=== PATIENT | male | born 1960 | race Caucasian/White ===

== ENCOUNTER 2022-04-27 15:31 | Inpatient (IN) ==
[2022-04-27] MEDS ORDERED: ONDANSETRON 4 MG/2 ML VIAL IV ONE (15:46)
[2022-04-27] MEDS ORDERED: morphine 4 MG/ML VIAL IV ONE (15:46)
--- NOTE | 2022-04-27 15:50 | Emergency Department Note ---
HPI General Chief complaint: Abdominal Pain Stated complaint: stomach ulcer Time Seen by Provider: 04/27/22 15:41 Source: patient Mode of arrival: ambulatory Limitations: no limitations History of Present Illness HPI Narrative: Narrative: 61-year-old male presents the emergency department for abdominal pain. He ac tually saw his primary care doctor today as he is having his belly pain that started last night around 6:30 PM. States that he saw his normal doctor and she ordered a CAT scan. Said today he had the CAT scan done here he had a barium swallow and a CAT scan done. He has not ate or drank anything since 9 AM. His CAT scan was actually read by Dr. Raphael Ramirez who called into the emergency department because they noticed an abnormal finding. They said showed moderate free air in the upper mesenteric cavity most likely secondary to a perforated gastric ulcer. Patient says the pain is actually on the lower abdomen. Says actually more in the groin. Says it feels like someone is squeezing his testicles. Says not really having testicle pain to just says hurts in his entire abdomen. Does have history of diverticulosis as well as diverticulitis said this does not feel like that. No changes in bowel movements. Denying any other symptoms otherwise. Related Data Previous Rx's Medication Instructions Recorded colchicine 0.6 mg tablet 0.6 mg PO BID #30 tabs 05/21/20 sildenafil 100 mg tablet (Viagra) 100 mg PO QDAY PRN sexual activity 04/21/21 #20 tabs Allergies Allergy/AdvReac Type Severity Reaction Status Date / Time No Known Drug Allergies Allergy Verified 04/27/22 15:39 enviromental Allergy Unknown Unknown Uncoded 04/27/22 08:35 Review of Systems ROS ROS Narrative: Narrative: All systems ED: reviewed and negative except as stated. PFSH Narrative Patient History Narrative: Narrative: Medical/Surgical/Family History All Active Problems (Updated 04/27/22 @ 20:11 by Brannon Marin DO) Perforated gastric ulcer (Acute) Acute diverticulitis of intestine (Acute) Erectile dysfunction (Acute) Screening for colon cancer (Acute) Genital herpes in men (Chronic) Hepatitis (Chronic) Gout (Chronic) Arthritis (Chronic) Upper respiratory tract infection (Acute) Medical History Arthritis Erectile dysfunction Genital herpes in men Gout last flare 05/2017 Hepatitis Screening for colon cancer Surgical History History of colonoscopy 2010, repeat in 10 years Family History Grandmother Diabetes Maternal/Paternal Grandfather Diabetes Maternal/Paternal Social History Smoking Status: Never smoker Alcohol Intake Frequency: does not drink Substance Use: does not use and former substance user Exam Narrative Narrative: Narrative: Vital signs noted General: Awake. Alert. No distress. Skin: Warm. Dry. No rash. HEENT: NCAT. PERRL. EOMI. No conjunctivitis. No nystagmus. No pharyngitis. Membranes moist. Neck: No PTP. Good ROM. No meningeal signs. No stridor. No thyromegaly. No JVD. Cardiovascular: RRR. No murmur. No rubs. No gallops. Respiratory: No respiratory distress. Breath sounds equal. Lungs clear. Gastrointestinal: Abdomen soft. Mild distention with generalized abdominal tenderness not really localized to a certain area. Normal bowel sounds. No palpable organomegaly or masses. Back: No deformity. No CVAT. Musculoskeletal: No tenderness. No swelling. No erythema. No edema. Good peripheral pulses x 4 Lymphatic: No palpable adenopathy. Neurological: No focal neurological deficits observed. General Limitations: no limitations Course Vital Signs Vital signs: Vital Signs Oxygen Delivery Method 04/27/22 15:37 Temperature 99.6 F H 04/27/22 19:56 Pulse Rate 97 H 04/27/22 19:56 Respiratory Rate 20 04/27/22 19:56 Blood Pressure 141/80 04/27/22 19:56 Pulse Oximetry (%) 95 04/27/22 19:56 Oxygen Delivery Method 04/27/22 19:56 MDM MDM Narrative Medical decision making narrative: Narrative: Patient actually looks well on exam but his abdomen is obviously tender. Based on the CAT scan already being done in the outpatient setting I do know the diagnosis. Diagnosis most likely is a moderate free air in the upper abdomen most likely secondary to a gastric ulcer. He does have would be considered a contaminated abdomen and deftly needs an emergent surgical consult. Due to this I called and spoke with Dr. Borrego the on-call general surgeon who recommended admission under his service and basic labs including CBC CMP and said that he will order the patient antibiotics. No further treatment needed for this patient I did order CBC and CMP. Patient was given IV morphine for pain control, IV Zofran for nausea and vomiting as well as IV fluids for rehydration. Patient is doing well at this time. I did personally review the radiological studies that were done in the outpatient setting read by Dr. Raphael Ramirez. The impression read as moderate free air in the upper mesenteric cavity adjacent to the lesser curvature of the distal gastric body. Most likely the patient has a perforated gastric ulcer. He also showed mild diverticulitis mid sigmoid colon, 5 cm lipoma in the right inguinal region, partial ankylosis across the SI joints. Patient was given IV Dilaudid as well for pain. Patient will be admitted to Dr. Borrego. I did speak with him and he is okay with this plan. Lab Data Result diagrams: 04/27/22 15:46 04/27/22 15:46 Labs: Lab Results 04/27/22 04/27/22 04/27/22 Range/Units 15:46 15:46 17:19 WBC 13.1 H (4.5-11.0) K/mcL RBC 5.35 (4.63-6.08) M/mcL Hgb 16.2 (13.7-17.5) g/dL Hct 47.9 (40.1-51.0) % MCV 89.5 (80.0-100.0) fL MCH 30.3 (26.0-34.0) pg MCHC 33.8 (31.0-36.0) g/dL RDW 12.7 (11.5-14.5) % Plt Count 236 (140-440) K/mcL MPV 10.8 (8.8-12.5) fL Immature Gran % (Auto) 0.4 (0.0-0.5) % Neut % (Auto) 86.8 H (38.0-78.0) % Lymph % (Auto) 6.4 L (15.5-49.0) % [place] % (Auto) 6.0 (1.0-12.0) % Eos % (Auto) 0.1 (0.0-7.0) % Baso % (Auto) 0.3 (0.0-2.0) % Lymph # (Auto) 0.83 L (1.50-4.80) K/mcL [place] # (Auto) 0.79 (0.10-0.90) K/mcL Eos # (Auto) 0.01 (0.00-0.70) K/mcL Baso # (Auto) 0.04 (0.00-0.30) K/mcL Immature Gran # 0.05 (0.00-0.05) K/mcl Absolute Neutrophils 11.34 H (1.80-8.00) K/mcL VBG Lactic Acid (0.5-2.0) mmol/L Sodium 131 L (133-145) mmol/L Potassium 4.2 (3.3-5.1) mmol/L Chloride 96 (96-108) mmol/L Carbon Dioxide 26 (22-30) mmol/L Anion Gap 9.0 (8.0-16.0) BUN 9 (8-23) mg/dL Creatinine 0.9 (0.7-1.2) mg/dL GFR Calculation 91 Glucose 112 H (70-105) mg/dL Calcium 9.2 (8.6-10.4) mg/dL Total Bilirubin 0.9 (0.1-1.0) mg/dL AST 18 (<40) U/L ALT 20 (<40) U/L Alkaline Phosphatase 64 (39-117) U/L Total Protein 7.5 (5.9-8.4) gm/dL Albumin 4.4 (3.2-5.2) gm/dL Globulin 3.1 (2.2-3.7) gm/dL Albumin/Globulin Ratio 1.4 (1.0-2.3) Lipase 24 (7-60) U/L Urine Color Lt. yellow Urine Appearance Clear (Clear) Urine pH 6.0 (5.0-9.0) Ur Specific [place] <= 1.005 (1.000-1.035) Urine Protein Negative (Negative) mg/dL Urine Glucose (UA) Negative (Negative) mg/dL Urine Ketones Negative (Negative) mg/dL Urine Occult Blood Negative (Negative) carin/mcL Urine Nitrate Negative (Negative) Urine Bilirubin Negative (Negative) mg/dL Urine Urobilinogen 0.2 A mg/dL Ur Leukocyte Esterase Negative (Negative) /uL Urine RBC 0 (0-3) /hpf Urine WBC < 1 (0-4) /hpf Ur Squamous Epith Cells 0 (0-4) /hpf Urine Bacteria None (0) /hpf 04/27/22 Range/Units 17:44 WBC (4.5-11.0) K/mcL RBC (4.63-6.08) M/mcL Hgb (13.7-17.5) g/dL Hct (40.1-51.0) % MCV (80.0-100.0) fL MCH (26.0-34.0) pg MCHC (31.0-36.0) g/dL RDW (11.5-14.5) % Plt Count (140-440) K/mcL MPV (8.8-12.5) fL Immature Gran % (Auto) (0.0-0.5) % Neut % (Auto) (38.0-78.0) % Lymph % (Auto) (15.5-49.0) % [place] % (Auto) (1.0-12.0) % Eos % (Auto) (0.0-7.0) % Baso % (Auto) (0.0-2.0) % Lymph # (Auto) (1.50-4.80) K/mcL [place] # (Auto) (0.10-0.90) K/mcL Eos # (Auto) (0.00-0.70) K/mcL Baso # (Auto) (0.00-0.30) K/mcL Immature Gran # (0.00-0.05) K/mcl Absolute Neutrophils (1.80-8.00) K/mcL VBG Lactic Acid 0.7 (0.5-2.0) mmol/L Sodium (133-145) mmol/L Potassium (3.3-5.1) mmol/L Chloride (96-108) mmol/L Carbon Dioxide (22-30) mmol/L Anion Gap (8.0-16.0) BUN (8-23) mg/dL Creatinine (0.7-1.2) mg/dL GFR Calculation Glucose (70-105) mg/dL Calcium (8.6-10.4) mg/dL Total Bilirubin (0.1-1.0) mg/dL AST (<40) U/L ALT (<40) U/L Alkaline Phosphatase (39-117) U/L Total Protein (5.9-8.4) gm/dL Albumin (3.2-5.2) gm/dL Globulin (2.2-3.7) gm/dL Albumin/Globulin Ratio (1.0-2.3) Lipase (7-60) U/L Urine Color Urine Appearance (Clear) Urine pH (5.0-9.0) Ur Specific [place] (1.000-1.035) Urine Protein (Negative) mg/dL Urine Glucose (UA) (Negative) mg/dL Urine Ketones (Negative) mg/dL Urine Occult Blood (Negative) carin/mcL Urine Nitrate (Negative) Urine Bilirubin (Negative) mg/dL Urine Urobilinogen mg/dL Ur Leukocyte Esterase (Negative) /uL Urine RBC (0-3) /hpf Urine WBC (0-4) /hpf Ur Squamous Epith Cells (0-4) /hpf Urine Bacteria (0) /hpf Discharge Plan Patient/Caregiver Discharge Instructions Pt seen by TACTICAL DEBRIEFER OFFICER/PA only: No Clinical Impression: Perforated gastric ulcer Patient Disposition: Xfer As Inpt ([facility]) Condition: Fair Discharge Date/Time: 04/27/22 19:05
[2022-04-27] MEDS: 0.9 % SODIUM CHLORIDE 1,000 ML IV SCH (16:06)
[2022-04-27 16:30] LABS: Basophils # (Auto) 0.04 K/mcL (0.00-0.30); Basophils % (Auto) 0.3 % (0.0-2.0); Eosinophils # (Auto) 0.01 K/mcL (0.00-0.70); Eosinophils % (Auto) 0.1 % (0.0-7.0); Hematocrit 47.9 % (40.1-51.0); Hemoglobin 16.2 g/dL (13.7-17.5); Lymphocytes # (Auto) 0.83 K/mcL (1.50-4.80); Lymphocytes % (Auto) 6.4 % (15.5-49.0); Mean Cell Volume 89.5 fL (80.0-100.0); Mean Corpuscular HGB Conc 33.8 g/dL (31.0-36.0); Mean Platelet Volume 10.8 fL (8.8-12.5); Monocytes # (Auto) 0.79 K/mcL (0.10-0.90); Neutrophils % (Auto) 86.8 % (38.0-78.0); Platelet Count 236 K/mcL (140-440); RBC 5.35 M/mcL (4.63-6.08); Red Cell Distribution Width 12.7 % (11.5-14.5); WBC 13.1 K/mcL (4.5-11.0)
[2022-04-27] MEDS ORDERED: PROMETHAZINE 25 MG/ML VIAL IV PRN (17:05)
--- NOTE | 2022-04-27 17:05 | General Surg History&Physical ---
HPI History of Present Illness Patient information: Note initiated : 04/27/22 at 4:58 pm Service Date, if different from initiated Date: [] Patient: Elkin Boucher a 61 y/o M admitted on for stomach ulcer. Chief Complaint: [] Chief complaint: Acute abdominal pain History of present illness: Mr. Boucher is a 61 year old M with 24-hour history of lower abdominal pain with nausea. He is also had some dysuria and hypogastric pain with radiation to his scrotum. He was seen by his primary provider earlier today and was noted to have some lower abdominal tenderness. She ordered CT of the abdomen and this showed free air which showed a combination of diffuse subphrenic air but also some air in the lower abdomen. He was noted to have sigmoid diverticulitis. On close questioning all of his symptoms are in the lower abdomen. Patient is felt to have acute diverticulitis and is admitted for antibiotic treatment and observation. He will have follow-up CT in 72 to 96 hours based on his response. If he responds and remains afebrile with resolution of symptoms he will be discharged home and treated with 3 weeks of antibiotics. Patient has had lower abdominal pain in the past but he has never had CT evidence of diverticulitis. He did have a colonoscopy in 2010 which showed diffuse diverticulosis. Though the diagnosis possible gastric ulcer perforation was given the patient has not had any upper abdominal symptoms and there are no findings of upper abdominal tenderness at this time. Review of Systems All systems: reviewed and no additional remarkable complaints except as stated PFSH PFSH All Active Problems (Updated 04/27/22 @ 17:03 by Roxanne Borrego MD) Acute diverticulitis of intestine (Acute) Erectile dysfunction (Acute) Screening for colon cancer (Acute) Genital herpes in men (Chronic) Hepatitis (Chronic) Gout (Chronic) Arthritis (Chronic) Upper respiratory tract infection (Acute) Medical History Arthritis Erectile dysfunction Genital herpes in men Gout last flare 05/2017 Hepatitis Screening for colon cancer Surgical History History of colonoscopy 2010, repeat in 10 years Family History Grandmother Diabetes Maternal/Paternal Grandfather Diabetes Maternal/Paternal Social History household members: spouse marital status: smoking status: Never smoker alcohol intake frequency: does not drink substance use type: does not use and former substance user MEDS/ALLERGIES Home Medications and Allergies Home Medications Medication Instructions Recorded Confirmed Type colchicine 0.6 mg tablet 0.6 mg PO BID #30 tabs 05/21/20 04/27/22 Rx sildenafil 100 mg tablet (Viagra) 100 mg PO QDAY PRN sexual activity 04/21/21 04/27/22 Rx #20 tabs Allergies Allergy/AdvReac Type Severity Reaction Status Date / Time No Known Drug Allergies Allergy Verified 04/27/22 15:39 enviromental Allergy Unknown Unknown Uncoded 04/27/22 08:35 Physical Examination Vital Signs Vital signs: Pulse BP Pulse Ox O2 Del Method 82 152/89 96 04/27/22 16:01 04/27/22 16:01 04/27/22 16:01 04/27/22 15:37 General physical appearance General physical exam: well developed, no distress and moderate pain Eyes Eye exam: PERRL and normal ocular movement ENT ENT exam: normal mucosa and no congestion Head Head exam IM: Present atraumatic, normal inspection and normocephalic Neck Neck exam: no masses, no bruits, trachea midline, no lymphadenopathy and no venous distension Cardiovascular Cardiovascular exam IM: Present normal rate and rhythm, RRR, +S1 and +S2; Absent gallop or JVD Respiratory Respiratory exam: normal expansion, normal respiratory effort and clear to auscultation Abdomen Abdomen: Present tender (Left lower quadrant and suprapubic area) and guarding (Hypogastric) Integumentary Integumentary: Present no rash, no growths and no abnormal pigmentation Neurologic Neurologic: Present normal coordination and normal sensation Musculoskeletal Musculoskeletal: Present normal gait and normal posture Psychiatric Psychiatric: Present oriented to time, oriented to person, oriented to place, speech is normal and memory intact Results Labs Result diagrams: 04/27/22 15:46 04/27/22 15:46 Labs: Abnormal lab results 04/27/22 Range/Units 15:46 WBC 13.1 H (4.5-11.0) K/mcL Neut % (Auto) 86.8 H (38.0-78.0) % Lymph % (Auto) 6.4 L (15.5-49.0) % Lymph # (Auto) 0.83 L (1.50-4.80) K/mcL Absolute Neutrophils 11.34 H (1.80-8.00) K/mcL All other labs normal. A/P Assessment and plan (1) Acute diverticulitis of intestine: Status: Acute Plan N.p.o. except for clear liquids Ciprofloxacin 500 mg IV every 12 hours Metronidazole 500 mg IV every 6 hours Follow-up CT in 72 to 96 hours. Serial chemistries and CBC Analgesics and antiemetics as needed Sepsis Sepsis Identified: No Time Spent With Patient Time: Total time spent is greater than 50% in coordination of care (as documented) at patient's floor/unit and/or counseling patient:
[2022-04-27 17:12] LABS: ALT/SGPT 20 U/L (<40); AST/SGOT 18 U/L (<40); Albumin 4.4 gm/dL (3.2-5.2); Albumin/Globulin Ratio 1.4 (1.0-2.3); Alkaline Phosphatase 64 U/L (39-117); Bilirubin,Total 0.9 mg/dL (0.1-1.0); Blood Urea Nitrogen 9 mg/dL (8-23); Calcium 9.2 mg/dL (8.6-10.4); Carbon Dioxide 26 mmol/L (22-30); Chloride 96 mmol/L (96-108); Globulin 3.1 gm/dL (2.2-3.7); Glomerular Filtration Rate 91; Glucose 112 mg/dL (70-105)
[2022-04-27] MEDS ORDERED: HYDROmorphone 1 MG/ML SYRINGE IV PRN (17:19)
[2022-04-27] MEDS: HYDROmorphone 1 MG/ML SYRINGE IV PRN ×2 (17:29→22:19)
--- NOTE | 2022-04-27 17:45 | XRay Report ---
CLINICAL INFORMATION: Preop COMPARISON: None. TECHNIQUE: Portable FINDINGS: The heart size, mediastinum and pulmonary vessels are unremarkable. The lungs are clear. There are no effusions. The bones and soft tissues are within normal limits. Moderate free air noted under the right diaphragm IMPRESSION: Cardiopulmonary disease. Subdiaphragmatic free air compatible with a ruptured gastric ulcer Interpreted and Authenticated by: Jameson Frias 04/27/22
[2022-04-27] MEDS: CIPROFLOXACIN 400 MG/200 ML BAG IV SCH (18:12)
[2022-04-27 19:32] LABS: Appearance,Urine CLEAR (Clear); Bilirubin,Urine NEGATIVE (Negative); Color,Urine LT. YELLOW; Glucose,Urine (UA) NEGATIVE (Negative); Ketones,Urine NEGATIVE (Negative); Leukocyte Esterase,Urine NEGATIVE /uL (Negative); Nitrate,Urine NEGATIVE (Negative); Protein,Urine NEGATIVE (Negative); Specific Gravity,Urine <= 1.005 (1.000-1.035); Urine Blood NEGATIVE ery/mcL (Negative); Urine RBC 0 /hpf (0-3); Urine Squamous Epithelial Cell 0 /hpf (0-4); Urine WBC < 1 /hpf (0-4); Urobilinogen,Urine 0.2 mg/dL
[2022-04-27] MEDS: metroNIDAZOLE 500 MG/100 ML BAG IV SCH ×2 (19:47→23:56)
[2022-04-27] MEDS: 0.9 % SODIUM CHLORIDE 10 ML SYRINGE IV SCH (20:22)
[2022-04-28] MEDS: 0.9 % SODIUM CHLORIDE 1,000 ML IV SCH ×3 (02:10→19:17)
[2022-04-28] MEDS: 0.9 % SODIUM CHLORIDE 10 ML SYRINGE IV SCH ×3 (04:42→20:21)
[2022-04-28] MEDS: metroNIDAZOLE 500 MG/100 ML BAG IV SCH ×3 (05:06→17:34)
[2022-04-28] MEDS: HYDROmorphone 1 MG/ML SYRINGE IV PRN ×6 (06:42→20:13)
[2022-04-28 06:53] LABS: Basophils # (Auto) 0.04 K/mcL (0.00-0.30); Basophils % (Auto) 0.3 % (0.0-2.0); Eosinophils # (Auto) 0 K/mcL (0.00-0.70); Eosinophils % (Auto) 0 % (0.0-7.0); Hematocrit 41.3 % (40.1-51.0); Hemoglobin 13.7 g/dL (13.7-17.5); Lymphocytes # (Auto) 1.04 K/mcL (1.50-4.80); Lymphocytes % (Auto) 8.4 % (15.5-49.0); Mean Corpuscular HGB Conc 33.2 g/dL (31.0-36.0); Mean Platelet Volume 11.2 fL (8.8-12.5); Monocytes # (Auto) 0.81 K/mcL (0.10-0.90); Monocytes % (Auto) 6.6 % (1.0-12.0); Neutrophils % (Auto) 84.4 % (38.0-78.0); Platelet Count 171 K/mcL (140-440); RBC 4.44 M/mcL (4.63-6.08); Red Cell Distribution Width 12.7 % (11.5-14.5); WBC 12.3 K/mcL (4.5-11.0)
[2022-04-28 07:24] LABS: ALT/SGPT 13 U/L (<40); AST/SGOT 14 U/L (<40); Albumin 3.6 gm/dL (3.2-5.2); Albumin/Globulin Ratio 1.5 (1.0-2.3); Alkaline Phosphatase 53 U/L (39-117); Bilirubin,Direct 0.2 mg/dL (<0.3); Blood Urea Nitrogen 8 mg/dL (8-23); Calcium 8.4 mg/dL (8.6-10.4); Carbon Dioxide 23 mmol/L (22-30); Chloride 99 mmol/L (96-108); Globulin 2.4 gm/dL (2.2-3.7); Glomerular Filtration Rate 80; Glucose 114 mg/dL (70-105); Lactate Dehydrogenase 173 U/L (135-225); Phosphorous 2.7 mg/dL (2.5-4.5); Triglycerides 42 mg/dL (<150); Uric Acid 5.2 mg/dL (2.5-8.0)
--- NOTE | 2022-04-28 07:30 | EKG ---
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
[2022-04-28] MEDS: ONDANSETRON 4 MG/2 ML VIAL IV PRN ×2 (08:22→16:15)
[2022-04-28] MEDS: CIPROFLOXACIN 400 MG/200 ML BAG IV SCH ×2 (09:56→20:16)
[2022-04-28] MEDS ORDERED: BUTALB/ACETAMINOPHEN/CAFFEINE 1 TABLET PO PRN (17:22)
--- NOTE | 2022-04-28 17:26 | General Surgery Progress Note ---
SUBJECTIVE Subjective Patient information: Note initiated : 04/28/22 at 5:23 pm Service Date, if different from initiated Date: [] Patient: Elkin Boucher 61 y/o M admitted on 04/27/22 for stomach ulcer. Chief Complaint: [] Principal diagnosis: Acute diverticulitis Interval history: Patient has had some nausea with vomiting today. He has been afebrile. He has not had bowel movement or flatus. White blood count 12.3, hemoglobin 13.7, hematocrit 41.3 Constitutional Vitals: Vital Signs Temp Pulse Resp BP Pulse Ox O2 Del Method 98.4 F 73 20 146/76 95 04/28/22 16:00 04/28/22 03:32 04/28/22 16:00 04/28/22 16:00 04/28/22 16:00 04/28/22 16:00 Period Temp Pulse Resp BP Sys/Silva Pulse Ox O2 Del Method O2 Flow Rate Last 24 Hr 97.2 F-100.2 F 73-97 14-20 105-146/63-80 93-96 Room Air-Room Air Intake and Output 04/28/22 04/28/22 04/28/22 03:59 11:59 19:59 Intake Total 2315 1300 1060 Output Total 1425 850 400 Balance 890 450 660 Weight 224 lb 2 oz Patient Weight 04/29/22 03:59 Weight 224 lb 2 oz Intake & Output: Intake & Output 04/28/22 04/28/22 04/28/22 03:59 11:59 19:59 Intake Total 2315 1300 1060 Output Total 1425 850 400 Balance 890 450 660 Weight 224 lb 2 oz Intake: IV 815 1300 100 Sodium Chloride 0.9% 1,000 ml @ 615 1000 125 mls/hr IV .Q8H [facility] Rx#: [id number] Oral 1500 960 Output: Void Amount 1425 100 400 Emesis 750 Other: Urine Appearance Clear Clear Urine Color Yellow Yellow Urine Odor Normal # Unmeasured Emesis 300 ENT ENT exam: Present mucous membranes moist and normal oropharynx Neck Neck exam: Present full ROM and normal inspection Respiratory Respiratory exam: Present normal respiratory exam and CTAB Cardiovascular Cardiovascular exam: Present normal rate and rhythm, RRR, +S1 and +S2 GI/Abdominal GI/Abdominal exam: Present diminished bowel sounds, distended and tenderness (Moderate tenderness left lower quadrant and hypogastric) Extremities Exam Extremities exam: Present normal inspection and neurovascular intact A/P Assessment and plan (1) Acute diverticulitis of intestine: Status: Acute Plan Reglan 10 mg IV every 6 hours Fevers 2 tabs every 4 hours as needed for headache Time Spent With Patient Time: Total time spent is greater than 50% in coordination of care (as documented) at patient's floor/unit and/or counseling patient:
[2022-04-28] MEDS: METOCLOPRAMIDE 10 MG/2 ML VIAL IV SCH ×2 (17:33→23:26)
[2022-04-28] MEDS ORDERED: ACETAMINOPHEN 1,000 MG/100 ML BAG IV ONE (23:25)
[2022-04-28] MEDS: ACETAMINOPHEN 1,000 MG/100 ML BAG IV SCH (23:28)
[2022-04-29] MEDS: 0.9 % SODIUM CHLORIDE 1,000 ML IV SCH ×3 (00:22→17:40)
[2022-04-29] MEDS: metroNIDAZOLE 500 MG/100 ML BAG IV SCH ×5 (00:23→23:19)
[2022-04-29] MEDS: HYDROmorphone 1 MG/ML SYRINGE IV PRN ×5 (02:28→20:59)
[2022-04-29] MEDS ORDERED: ACETAMINOPHEN 1,000 MG/100 ML BAG IV ONE (05:26)
[2022-04-29] MEDS: METOCLOPRAMIDE 10 MG/2 ML VIAL IV SCH ×4 (05:29→23:19)
[2022-04-29] MEDS: ACETAMINOPHEN 1,000 MG/100 ML BAG IV SCH ×4 (05:29→23:18)
[2022-04-29] MEDS: 0.9 % SODIUM CHLORIDE 10 ML SYRINGE IV SCH ×3 (05:55→20:54)
[2022-04-29 08:09] LABS: Basophils # (Auto) 0.04 K/mcL (0.00-0.30); Basophils % (Auto) 0.4 % (0.0-2.0); Eosinophils # (Auto) 0.04 K/mcL (0.00-0.70); Eosinophils % (Auto) 0.4 % (0.0-7.0); Hematocrit 38.3 % (40.1-51.0); Hemoglobin 12.8 g/dL (13.7-17.5); Mean Cell Volume 91.8 fL (80.0-100.0); Mean Corpuscular HGB Conc 33.4 g/dL (31.0-36.0); Mean Platelet Volume 10.4 fL (8.8-12.5); Neutrophils % (Auto) 84.7 % (38.0-78.0); Platelet Count 150 K/mcL (140-440); RBC 4.17 M/mcL (4.63-6.08); Red Cell Distribution Width 12.6 % (11.5-14.5); WBC 11.4 K/mcL (4.5-11.0)
[2022-04-29] MEDS: CIPROFLOXACIN 400 MG/200 ML BAG IV SCH ×2 (08:41→20:53)
[2022-04-29] MEDS ORDERED: FLU VACC QS2022-23(6MOS UP)/PF 60 MCG/0.5 ML SYRINGE IM ONE (10:00)
--- NOTE | 2022-04-29 14:10 | General Surgery Progress Note ---
SUBJECTIVE Subjective Patient information: Note initiated : 04/29/22 at 2:03 pm Service Date, if different from initiated Date: [] Patient: Elkin Boucher 61 y/o M admitted on 04/27/22 for stomach ulcer. Chief Complaint: [] Principal diagnosis: Acute diverticulitis Interval history: Patient had nausea vomiting and temperature elevation last evening. Peak temperature was 102 at midnight. He has been afebrile since that time. He is getting scheduled acetaminophen. Passing flatus but no bowel movement he has started. He still has left lower quadrant and suprapubic tenderness. He is pain is significantly improved. White blood count is 11.4 and hemoglobin 12.8. Constitutional Vitals: Vital Signs Temp Pulse Resp BP Pulse Ox O2 Del Method 98.4 F 58 L 16 120/63 96 04/29/22 07:10 04/29/22 07:10 04/29/22 07:10 04/29/22 07:10 04/29/22 07:10 04/29/22 07:10 Period Temp Pulse Resp BP Sys/Silva Pulse Ox O2 Del Method O2 Flow Rate Last 24 Hr 98.4 F-102.3 F 58-76 16-20 103-146/62-76 90-97 Room Air-Room Air Intake and Output 04/29/22 04/29/22 04/29/22 03:59 11:59 19:59 Intake Total 1999 1020 200 Output Total 1150 1275 Balance 850 -255 200 Weight 225 lb 3.2 oz Intake & Output: Intake & Output 04/29/22 04/29/22 04/29/22 03:59 11:59 19:59 Intake Total 1999 1020 200 Output Total 1150 1275 Balance 850 -255 200 Weight 225 lb 3.2 oz Intake: IV 1400 400 200 Sodium Chloride 0.9% 1,000 ml @ 1000 125 mls/hr IV .Q8H [facility] Rx#: [id number] Oral 600 620 Output: Void Amount 1150 1275 Other: Meal jellio Percent of Meal Consumed 100% Feeding Ability Independent Urine Appearance Clear Clear Urine Color Dark Yellow Yellow # Voids 1 ENT ENT exam: Present mucous membranes moist, normal external ear exam and normal oropharynx Neck Neck exam: Present normal inspection; Absent tenderness Respiratory Respiratory exam: Present normal respiratory exam and CTAB Cardiovascular Cardiovascular exam: Present normal rate and rhythm, JVD, RRR, +S1 and +S2 GI/Abdominal GI/Abdominal exam: Present soft and tenderness (Left lower quadrant and suprapubic tenderness); Absent distended Extremities Exam Extremities exam: Present normal inspection and neurovascular intact; Absent tenderness Neurological Exam Neurological exam: Present alert and oriented X3; Absent motor sensory deficit Psychiatric Psychiatric exam: Present normal affect and normal mood A/P Assessment and plan (1) Acute diverticulitis of intestine: Status: Acute Plan CT of abdomen and pelvis with IV contrast in the a.m. CBC in a.m. Time Spent With Patient Time: Total time spent is greater than 50% in coordination of care (as documented) at patient's floor/unit and/or counseling patient:
[2022-04-29] MEDS: ONDANSETRON 4 MG/2 ML VIAL IV PRN (14:13)
[2022-04-30] MEDS: 0.9 % SODIUM CHLORIDE 1,000 ML IV SCH ×4 (00:33→14:12)
[2022-04-30] MEDS: HYDROmorphone 1 MG/ML SYRINGE IV PRN ×5 (02:18→21:22)
[2022-04-30] MEDS: METOCLOPRAMIDE 10 MG/2 ML VIAL IV SCH ×4 (05:33→23:33)
[2022-04-30] MEDS: metroNIDAZOLE 500 MG/100 ML BAG IV SCH ×4 (05:33→23:32)
[2022-04-30] MEDS: ACETAMINOPHEN 1,000 MG/100 ML BAG IV SCH ×4 (05:33→23:33)
[2022-04-30] MEDS: 0.9 % SODIUM CHLORIDE 10 ML SYRINGE IV SCH ×3 (06:01→21:50)
[2022-04-30 06:50] LABS: Basophils # (Auto) 0.03 K/mcL (0.00-0.30); Basophils % (Auto) 0.3 % (0.0-2.0); Eosinophils # (Auto) 0.12 K/mcL (0.00-0.70); Eosinophils % (Auto) 1.2 % (0.0-7.0); Hematocrit 38.7 % (40.1-51.0); Hemoglobin 12.8 g/dL (13.7-17.5); Lymphocytes # (Auto) 0.74 K/mcL (1.50-4.80); Lymphocytes % (Auto) 7.6 % (15.5-49.0); Mean Cell Volume 93.3 fL (80.0-100.0); Mean Corpuscular HGB Conc 33.1 g/dL (31.0-36.0); Monocytes % (Auto) 7.2 % (1.0-12.0); Neutrophils % (Auto) 83.5 % (38.0-78.0); Platelet Count 156 K/mcL (140-440); RBC 4.15 M/mcL (4.63-6.08); Red Cell Distribution Width 12.4 % (11.5-14.5); WBC 9.7 K/mcL (4.5-11.0)
[2022-04-30 07:17] LABS: ALT/SGPT 18 U/L (<40); AST/SGOT 18 U/L (<40); Albumin 2.9 gm/dL (3.2-5.2); Albumin/Globulin Ratio 1.1 (1.0-2.3); Alkaline Phosphatase 63 U/L (39-117); Bilirubin,Direct 0.2 mg/dL (<0.3); Bilirubin,Total 0.5 mg/dL (0.1-1.0); Blood Urea Nitrogen 5 mg/dL (8-23); Calcium 8.2 mg/dL (8.6-10.4); Carbon Dioxide 24 mmol/L (22-30); Chloride 102 mmol/L (96-108); Globulin 2.7 gm/dL (2.2-3.7); Glomerular Filtration Rate 101; Glucose 96 mg/dL (70-105); Lactate Dehydrogenase 139 U/L (135-225); Phosphorous 2.5 mg/dL (2.5-4.5); Triglycerides 39 mg/dL (<150); Uric Acid 4.1 mg/dL (2.5-8.0)
[2022-04-30] MEDS: CIPROFLOXACIN 400 MG/200 ML BAG IV SCH ×2 (08:03→21:22)
[2022-04-30] MEDS ORDERED: PROMETHAZINE 25 MG/ML VIAL IV PRN (11:42)
--- NOTE | 2022-04-30 12:23 | General Surgery Progress Note ---
SUBJECTIVE Subjective Patient information: Note initiated : 04/30/22 at 12:19 pm Service Date, if different from initiated Date: [] Patient: Elkin Boucher 61 y/o M admitted on 04/27/22 for stomach ulcer. Chief Complaint: [] Principal diagnosis: Acute diverticulitis Interval history: Patient states that he has improved pain. He has been afebrile. He had some nausea during the night but that is improved. White blood count is 9.7, hemoglobin 12.8, hematocrit 38.7. CT shows improved inflammation at the distal sigmoid but he has 2 small abscesses less than 2 cm and a developing. All of the free air has resolved. Constitutional Vitals: Vital Signs Temp Pulse Resp BP Pulse Ox O2 Del Method 98.7 F 65 16 121/56 92 04/30/22 11:04 04/30/22 11:04 04/30/22 11:04 04/30/22 11:04 04/30/22 11:04 04/30/22 11:04 Period Temp Pulse Resp BP Sys/Silva Pulse Ox O2 Del Method O2 Flow Rate Last 24 Hr 97.5 F-99.0 F 62-65 16-16 112-132/56-80 92-96 Room Air-Room Air Intake and Output 04/30/22 04/30/22 04/30/22 03:59 11:59 19:59 Intake Total 1979 500 Output Total 875 1425 Balance 1105 -925 Weight 223 lb 3.2 oz Intake & Output: Intake & Output 04/30/22 04/30/22 04/30/22 03:59 11:59 19:59 Intake Total 1979 500 Output Total 875 1425 Balance 1105 -925 Weight 223 lb 3.2 oz Intake: IV 1400 500 Sodium Chloride 0.9% 1,000 ml @ 1000 125 mls/hr IV .Q8H [facility] Rx#: [id number] Oral 580 Output: Void Amount 875 1425 Other: Meal popcicle Percent of Meal Consumed 100% Feeding Ability Independent Urine Appearance Clear Clear Urine Color Dark Yellow Yellow Stool Size Moderate Small Stool Color Brown Brown Stool Consistency Formed Soft [place] # Bowel Movements 1 ENT ENT exam: Present normal exam and normal oropharynx Neck Neck exam: Present full ROM and normal inspection Respiratory Respiratory exam: Present normal respiratory exam and CTAB Cardiovascular Cardiovascular exam: Present normal rate and rhythm, RRR, +S1 and +S2; Absent JVD GI/Abdominal GI/Abdominal exam: Present normal bowel sounds, soft and tenderness (Left lower quadrant and hypogastric gastric tenderness which is improved from yesterday); Absent distended Extremities Exam Extremities exam: Present normal inspection and neurovascular intact Neurological Exam Neurological exam: Present oriented X3 and reflexes normal Psychiatric Psychiatric exam: Present normal affect and normal mood A/P Assessment and plan (1) Acute diverticulitis of intestine: Status: Acute Plan Patient will continue on antibiotics. I will wait until tomorrow to restart full liquids. Time Spent With Patient Time: Total time spent is greater than 50% in coordination of care (as documented) at patient's floor/unit and/or counseling patient:
--- NOTE | 2022-04-30 13:32 | Cat Scan Report ---
CLINICAL INFORMATION: Mild diverticulitis COMPARISON: None. TECHNIQUE: Following enteric contrast, 80 cc of Isovue-370 were injected intravenously, and 60 seconds later, 0.625 mm helical slices were obtained from the mid heart through the subtrochanteric regions. Following reconstruction, 2.5 mm sagittal, coronal and axial reformatted images were processed and reviewed at bone, lung and soft tissue windows. Five minutes later, 0.625 mm helical slices were obtained from the mid heart through the kidneys and viewed at soft tissue windows.The exam was performed using radiation dose optimization techniques including, but not limited to, automated exposure control, adjustment of the mA and/or kV according to patient size and use of iterative reconstruction technique. FINDINGS: The lung bases are clear. No effusions. The visualized heart is grossly normal. Abdominal images show mild fatty change within the liver, but no focal hepatic lesion. Gallbladder and bile ducts, both kidneys, adrenal glands, spleen, pancreas and aorta, including aortic branches, are normal in size, configuration and attenuation without focal lesion. Is no adenopathy Pelvic images show normal urinary bladder, prostate and seminal vesicles. Multiple inflamed sigmoid diverticuli with phlegmon in the perisigmoid fat within the mid region has progressed from the previous study particularly the degree of phlegmon. There two new small abscesses 3.4 cm in the left perisigmoid fat, near the rectal junction, and 2.8 cm in the right perisigmoid fat more proximally. Small/moderate free fluid in the deep true pelvis and extending along the paracolic gutters has increased. diverticulitis. The remainder of the large bowel is normal. Appendix not identified and may be surgically absent. Small bowel is unremarkable. The free intraperitoneal air, previously seen the upper abdomen, has nearly resolved with only minimal residual over the anterior surface of the liver. There is no supportive evidence for rupture peptic ulcer on the basis of this exam. Stomach is unremarkable. Bone windows show no osseous abnormality. There is is a 5 cm benign lipoma in the right inguinal region. IMPRESSION: 1. Interval resolution in free intraperitoneal air previously seen in the upper abdomen. No evidence of ruptured peptic ulcer. 2. Moderate sigmoid diverticulitis which has progressed. There are now two small abscesses adjacent to the distal sigmoid colon each approximately 3 cm. There are phlegmon and free fluid in the true pelvis and along the paracolic gutters has increased. 3. 5 cm lipoma in the right inguinal region. 4. Partial ankylosis across the SI joints. This is often seen with chronic ankylosing spondylitis. Interpreted and Authenticated by: Jameson Frias 04/30/22
[2022-05-01] MEDS: 0.9 % SODIUM CHLORIDE 1,000 ML IV SCH ×3 (00:28→10:46)
[2022-05-01] MEDS: HYDROmorphone 1 MG/ML SYRINGE IV PRN ×2 (01:46→11:16)
[2022-05-01] MEDS: METOCLOPRAMIDE 10 MG/2 ML VIAL IV SCH ×4 (05:25→23:51)
[2022-05-01] MEDS: metroNIDAZOLE 500 MG/100 ML BAG IV SCH ×4 (05:25→23:50)
[2022-05-01] MEDS: ACETAMINOPHEN 1,000 MG/100 ML BAG IV SCH ×4 (05:25→23:59)
[2022-05-01] MEDS: 0.9 % SODIUM CHLORIDE 10 ML SYRINGE IV SCH ×3 (05:49→22:04)
[2022-05-01 06:27] LABS: Basophils # (Auto) 0.05 K/mcL (0.00-0.30); Basophils % (Auto) 0.6 % (0.0-2.0); Eosinophils # (Auto) 0.13 K/mcL (0.00-0.70); Eosinophils % (Auto) 1.7 % (0.0-7.0); Hematocrit 37.3 % (40.1-51.0); Hemoglobin 12.3 g/dL (13.7-17.5); Lymphocytes # (Auto) 0.94 K/mcL (1.50-4.80); Mean Cell Volume 92.8 fL (80.0-100.0); Mean Platelet Volume 10.9 fL (8.8-12.5); Monocytes # (Auto) 0.68 K/mcL (0.10-0.90); Monocytes % (Auto) 8.7 % (1.0-12.0); Neutrophils % (Auto) 76.6 % (38.0-78.0); Platelet Count 186 K/mcL (140-440); RBC 4.02 M/mcL (4.63-6.08); Red Cell Distribution Width 12.3 % (11.5-14.5); WBC 7.8 K/mcL (4.5-11.0)
[2022-05-01 06:44] LABS: ALT/SGPT 12 U/L (<40); AST/SGOT 13 U/L (<40); Albumin 2.7 gm/dL (3.2-5.2); Alkaline Phosphatase 62 U/L (39-117); Bilirubin,Direct < 0.2 mg/dL (0-0.3); Bilirubin,Total 0.4 mg/dL (0.1-1.0); Blood Urea Nitrogen 5 mg/dL (8-23); Carbon Dioxide 25 mmol/L (22-30); Chloride 103 mmol/L (96-108); Globulin 2.6 gm/dL (2.2-3.7); Glomerular Filtration Rate 101; Glucose 88 mg/dL (70-105); Lactate Dehydrogenase 145 U/L (135-225); Phosphorous 3.1 mg/dL (2.5-4.5); Triglycerides 42 mg/dL (<150)
[2022-05-01] MEDS: CIPROFLOXACIN 400 MG/200 ML BAG IV SCH ×2 (10:02→20:30)
--- NOTE | 2022-05-01 12:57 | General Surgery Progress Note ---
SUBJECTIVE Subjective Patient information: Note initiated : 05/01/22 at 12:57 pm Service Date, if different from initiated Date: [] Patient: Elkin Boucher 61 y/o M admitted on 04/27/22 for stomach ulcer. Chief Complaint: [] Principal diagnosis: Acute diverticulitis Interval history: Patient continues to improve. He has had some soft bowel movements. He has tolerated full liquids well. White blood count 7.8. He has mild tenderness in the suprapubic midline Constitutional Vitals: Vital Signs Temp Pulse Resp BP Pulse Ox O2 Del Method 99.2 F H 63 20 139/91 94 05/01/22 11:50 05/01/22 11:50 05/01/22 11:50 05/01/22 11:50 05/01/22 11:50 05/01/22 11:50 Period Temp Pulse Resp BP Sys/Silva Pulse Ox O2 Del Method O2 Flow Rate Last 24 Hr 97.8 F-99.5 F 59-75 16-20 117-139/57-91 94-97 Room Air-Room Air Intake and Output 05/01/22 05/01/22 05/01/22 03:59 11:59 19:59 Intake Total 1989 1400 Output Total 850 650 Balance 1140 750 Intake & Output: Intake & Output 05/01/22 05/01/22 05/01/22 03:59 11:59 19:59 Intake Total 1989 1400 Output Total 850 650 Balance 1140 750 Intake: IV 1400 1400 Sodium Chloride 0.9% 1,000 ml @ 1000 1000 125 mls/hr IV .Q8H FORMERLY [facility], 1928–1983 Rx#: [id number] Oral 590 Output: Void Amount 850 650 Other: Meal Popcicle Percent of Meal Consumed 100% 2 popsicle Feeding Ability Independent Independent Urine Appearance Clear Clear Urine Color Light Alycia Light Alycia Stool Size Small Stool Color Brown Stool Consistency Soft # Bowel Movements 1 Eye Eye exam: Present PERRL ENT ENT exam: Present mucous membranes moist and normal oropharynx Neck Neck exam: Present full ROM and normal inspection Respiratory Respiratory exam: Present normal respiratory exam and CTAB Cardiovascular Cardiovascular exam: Present normal rate and rhythm, RRR, +S1 and +S2; Absent JVD GI/Abdominal GI/Abdominal exam: Present normal bowel sounds, soft and tenderness (Mild tenderness in suprapubic midline); Absent distended Extremities Exam Extremities exam: Present normal inspection and neurovascular intact Neurological Exam Neurological exam: Present alert and oriented X3; Absent motor sensory deficit Psychiatric Psychiatric exam: Present normal affect and normal mood A/P Assessment and plan (1) Diverticulitis of intestine with abscess: Status: Acute Plan full liquid diet Saline lock IV Time Spent With Patient Time: Total time spent is greater than 50% in coordination of care (as documented) at patient's floor/unit and/or counseling patient:
[2022-05-01] MEDS ORDERED: METOPROLOL TARTRATE 5 MG/5 ML VIAL IV SCH ×2 (14:16→15:40)
[2022-05-01] MEDS ORDERED: METOPROLOL TARTRATE 25 MG TABLET PO SCH (14:32)
[2022-05-01] MEDS ORDERED: FUROSEMIDE 40 MG/4 ML VIAL IV SCH (14:42)
--- NOTE | 2022-05-01 14:46 | Internal Medicine Consult Note ---
HPI Date of Consult Consult Date: 05/01/22 Requesting physician: Roxanne Borrego Primary Care Provider: Giuliana Jolly DO Consult Narrative Patient Information: Note initiated : 05/01/22 at 2:43 pm Service Date, if different from initiated Date: [] Patient: Elkin Boucher 61 y/o M admitted on 04/27/22 for stomach ulcer. Chief Complaint: 61-year-old male with a past medical history 61-year-old male with no significant past medical history was hospitalized on April 27 for acute abdominal pain and was diagnosed with complicated diverticulitis with 2 small abscesses and microperforation. He was medically managed by general surgery and has been doing quite well. He remains afebrile and his white blood cell count is normal at 9.7. Repeat CT revealed improved inflammation at the sigmoid and the free air has resolved. The hospitalist service was asked evaluate the patient for new onset SVT. The patient was complaining of chest pressure, dyspnea and palpitations. He was hemodynamically stable. EKG confirmed atrial fibrillation with rapid ventricular rate. Chief complaint: Tachycardia Reason for consult: SVT cc:: CC: Roxanne Borrego MD Constitutional Constitutional: Present as per HPI PFSH PFSH All Active Problems (Updated 05/01/22 @ 14:51 by Wong Lerma MD) Atrial fibrillation with rapid ventricular response (Acute) Diverticulitis of intestine with abscess (Acute) Perforated gastric ulcer (Acute) Acute diverticulitis of intestine (Acute) Erectile dysfunction (Acute) Screening for colon cancer (Acute) Genital herpes in men (Chronic) Hepatitis (Chronic) Gout (Chronic) Arthritis (Chronic) Upper respiratory tract infection (Acute) Medical History Arthritis Erectile dysfunction Genital herpes in men Gout last flare 05/2017 Hepatitis Screening for colon cancer Surgical History History of colonoscopy 2010, repeat in 10 years Family History Grandmother Diabetes Maternal/Paternal Grandfather Diabetes Maternal/Paternal Social History household members: spouse marital status: smoking status: Never smoker alcohol intake frequency: does not drink substance use type: does not use and former substance user MEDS/ALLERGIES Home Medications and Allergies Home Medications Medication Instructions Recorded Confirmed Type No Known Home Meds 04/27/22 04/27/22 History Allergies Allergy/AdvReac Type Severity Reaction Status Date / Time No Known Drug Allergies Allergy Verified 04/27/22 15:39 enviromental Allergy Unknown Unknown Uncoded 04/27/22 08:35 EXAM Constitutional Vitals: Temp Pulse Resp BP Pulse Ox O2 Del Method 99.2 F H 63 20 139/91 94 05/01/22 11:50 05/01/22 11:50 05/01/22 11:50 05/01/22 11:50 05/01/22 11:50 05/01/22 11:50 General appearance: average body habitus Head Head exam: Present atraumatic, normal inspection and normocephalic Eye Eye exam: Present EOMI, normal appearance and PERRL; Absent conjunctival injection ENT ENT exam: Present normal exam; Absent mucous membranes dry Neck Neck exam: Present full ROM; Absent lymphadenopathy Respiratory Respiratory exam: Present decreased breath sounds; Absent accessory muscle use or CTAB Cardiovascular Cardiovascular exam: Present irregular rhythm and tachycardia; Absent JVD GI/Abdominal GI/Abdominal exam: Present normal bowel sounds and soft; Absent diminished bowel sounds, distended, guarding, mass, rebound or tenderness Neurological Exam Neurological exam: Present alert, CN II-XII intact and oriented X3 Psychiatric Psychiatric exam: Present normal affect and normal mood Skin Skin exam: Present intact and warm; Absent erythema, pallor, petechiae or rash DATA Data Completed and Pending Labs: Labs from last 24 hours 05/01/22 05/01/22 05/01/22 14:34 14:34 04:53 WBC 7.8 RBC 4.02 L Hgb 12.3 L Hct 37.3 L MCV 92.8 MCH 30.6 MCHC 33.0 RDW 12.3 Plt Count 186 MPV 10.9 Immature Gran % (Auto) 0.4 Neut % (Auto) 76.6 Lymph % (Auto) 12.0 L Churchill % (Auto) 8.7 Eos % (Auto) 1.7 Baso % (Auto) 0.6 Lymph # (Auto) 0.94 L Churchill # (Auto) 0.68 Eos # (Auto) 0.13 Baso # (Auto) 0.05 Immature Gran # 0.03 Absolute Neutrophils 6.00 Sodium Potassium Chloride Carbon Dioxide Anion Gap BUN Creatinine GFR Calculation Glucose Uric Acid Calcium Phosphorus Magnesium Pending Total Bilirubin Direct Bilirubin GGT AST ALT Alkaline Phosphatase Lactate Dehydrogenase NT-Pro-B Natriuret Pep Pending Total Protein Albumin Globulin Albumin/Globulin Ratio Triglycerides 05/01/22 04:53 WBC RBC Hgb Hct MCV MCH MCHC RDW Plt Count MPV Immature Gran % (Auto) Neut % (Auto) Lymph % (Auto) Churchill % (Auto) Eos % (Auto) Baso % (Auto) Lymph # (Auto) Churchill # (Auto) Eos # (Auto) Baso # (Auto) Immature Gran # Absolute Neutrophils Sodium 136 Potassium 3.9 Chloride 103 Carbon Dioxide 25 Anion Gap 8.0 BUN 5 L Creatinine 0.7 GFR Calculation 101 Glucose 88 Uric Acid 4.0 Calcium 8.0 L Phosphorus 3.1 Magnesium 1.8 Total Bilirubin 0.4 Direct Bilirubin < 0.2 GGT 39 AST 13 ALT 12 Alkaline Phosphatase 62 Lactate Dehydrogenase 145 NT-Pro-B Natriuret Pep Total Protein 5.3 L Albumin 2.7 L Globulin 2.6 Albumin/Globulin Ratio 1.0 Triglycerides 42 A/P Assessment and plan (1) Atrial fibrillation with rapid ventricular response: Status: Acute Narrative A/P Narrative: #AF w/ RVR -Unclear underlying etiology, no known hx of cardiac arrhythmias -DDx: age, physiologic stress, cardiomyopathy, ischemia -Investigations: EKG, trop, BNP, BMP, Mg, Phos, CXR -Tx: Lopressor 5mg IV x 1, Toprol XL 25mg PO x 1. CHADSVASC2 = 0 -Monitor on telemetry Time Spent With Patient Time: Total time spent is greater than 50% in coordination of care (as documented) at patient's floor/unit and/or counseling patient: Total time spent with greater than 50% in coordination of care (as documented) at patient's floor/unit and/or counseling patient:: 50 - 70 minutes
[2022-05-01] MEDS ORDERED: DIGOXIN 500 MCG/2 ML AMPUL IV SCH (15:40)
[2022-05-01] MEDS ORDERED: MAGNESIUM SULFATE 2 GM/50 ML BAG IV SCH (15:41)
[2022-05-01] MEDS ORDERED: SODIUM PHOSPHATE 15 MMOL/5 ML VIAL IV ONE (15:43)
[2022-05-01] MEDS ORDERED: SODIUM PHOSPHATE 30 MMOL in DEXTROSE 5% IN WATER 500 ML IV SCH (15:45)
[2022-05-01] MEDS: ONDANSETRON 4 MG/2 ML VIAL IV PRN (18:11)
--- NOTE | 2022-05-01 18:42 | XRay Report ---
CLINICAL INFORMATION: New onset atrial fibrillation COMPARISON: 04/27/2022 TECHNIQUE: Portable FINDINGS: The heart size, mediastinum and pulmonary vessels are unremarkable. The lungs are clear. There are no effusions. Moderate elevation right diaphragm seen as as before. The bones and soft tissues are within normal limits. IMPRESSION: No acute cardiopulmonary disease. Mild elevation right diaphragm Interpreted and Authenticated by: Jameson Frias 05/01/22
[2022-05-02] MEDS: metroNIDAZOLE 500 MG/100 ML BAG IV SCH ×4 (05:19→23:05)
[2022-05-02] MEDS: ACETAMINOPHEN 1,000 MG/100 ML BAG IV SCH ×3 (05:19→17:26)
[2022-05-02] MEDS: 0.9 % SODIUM CHLORIDE 10 ML SYRINGE IV SCH ×3 (05:20→20:52)
[2022-05-02] MEDS: METOCLOPRAMIDE 10 MG/2 ML VIAL IV SCH ×4 (05:20→23:06)
[2022-05-02 06:32] LABS: Basophils # (Auto) 0.04 K/mcL (0.00-0.30); Basophils % (Auto) 0.5 % (0.0-2.0); Eosinophils # (Auto) 0.16 K/mcL (0.00-0.70); Hemoglobin 13.9 g/dL (13.7-17.5); Lymphocytes # (Auto) 0.88 K/mcL (1.50-4.80); Lymphocytes % (Auto) 10.8 % (15.5-49.0); Mean Cell Volume 90.9 fL (80.0-100.0); Mean Corpuscular HGB Conc 33.1 g/dL (31.0-36.0); Mean Platelet Volume 10.3 fL (8.8-12.5); Monocytes # (Auto) 0.75 K/mcL (0.10-0.90); Monocytes % (Auto) 9.2 % (1.0-12.0); Neutrophils % (Auto) 77.1 % (38.0-78.0); Platelet Count 257 K/mcL (140-440); RBC 4.62 M/mcL (4.63-6.08); Red Cell Distribution Width 12.2 % (11.5-14.5); WBC 8.2 K/mcL (4.5-11.0)
--- NOTE | 2022-05-02 07:55 | EKG ---
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 Measurements Intervals [place] Rate: 116 P: [place]: QRS: 53 QRSD: 80 T: 4 QT: 332 QTc: 461 Interpretive Statements Atrial fibrillation Minimal ST depression, anterolateral leads Electronically Signed On 05-02-2022 7:55:10 PST by Jameson Mchugh M.D. /store/M0/[id number]
--- NOTE | 2022-05-02 07:58 | EKG ---
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 Measurements Intervals [place] Rate: 68 P: 46 [place]: 184 QRS: 37 QRSD: 85 T: 10 QT: 367 QTc: 391 Interpretive Statements SINUS RHYTHM MULTIPLE ATRIAL PREMATURE COMPLEXES Electronically Signed On 05-02-2022 7:58:03 PST by Jameson Mchugh M.D. /store/M0/[id number]
[2022-05-02] MEDS: METOPROLOL TARTRATE 25 MG TABLET PO SCH ×2 (08:48→20:59)
[2022-05-02] MEDS: CIPROFLOXACIN 400 MG/200 ML BAG IV SCH ×2 (08:49→20:51)
--- NOTE | 2022-05-02 09:04 | Internal Med Progress Note ---
SUBJECTIVE Subjective Patient information: Note initiated : 05/02/22 at 9:00 am Service Date, if different from initiated Date: [] Patient: Elkin Boucher 61 y/o M admitted on 04/27/22 for stomach ulcer. Chief Complaint: [SVT] Principal diagnosis: Acute diverticulitis Interval history: Converted to NSR, doing and feeling much better Constitutional Vitals: Vital Signs Temp Pulse Resp BP Pulse Ox O2 Del Method 97.9 F 60 13 146/76 95 05/02/22 06:55 05/02/22 06:55 05/02/22 06:55 05/02/22 06:55 05/02/22 06:55 05/02/22 06:55 Period Temp Pulse Resp BP Sys/Silva Pulse Ox O2 Del Method O2 Flow Rate Last 24 Hr 97.8 F-99.2 F 55-90 13-22 122-152/68-91 93-99 Room Air-Room Air Intake and Output 05/01/22 05/02/22 05/02/22 19:59 03:59 11:59 Intake Total 400 1150 250 Output Total 3225 2100 Balance -2825 -950 250 Weight 100.516 kg Intake & Output: Intake & Output 05/01/22 05/02/22 05/02/22 19:59 03:59 11:59 Intake Total 400 1150 250 Output Total 3225 2100 Balance -2825 -950 250 Weight 100.516 kg Intake: IV 300 500 250 Oral 100 650 Output: Void Amount 3225 1200 Urine/Stool Mix 900 Other: Meal Dinner Percent of Meal Consumed 100% Feeding Ability Independent Urine Appearance Clear Clear Urine Color Yellow Yellow Head Head exam: Present atraumatic and normal inspection Eye Eye exam: Present normal appearance ENT ENT exam: Present mucous membranes moist, normal exam and normal external ear exam Neck Neck exam: Present normal inspection Respiratory Respiratory exam: Present normal respiratory exam Cardiovascular Cardiovascular exam: Present normal rate and rhythm GI/Abdominal GI/Abdominal exam: Present normal bowel sounds Back Exam Back exam: Present normal inspection Neurological Exam Neurological exam: Present alert and oriented X3 Skin Skin exam: Present intact and warm OBJ DATA Labs CBC & Chem 7: 05/02/22 04:14 05/01/22 04:53 Labs: Abnormal Lab Results 05/02/22 05/01/22 05/01/22 04:14 14:34 04:53 RBC 4.62 L 4.02 L Hgb 12.3 L Hct 37.3 L Neut % (Auto) Lymph % (Auto) 10.8 L 12.0 L Lymph # (Auto) 0.88 L 0.94 L Absolute Neutrophils BUN Calcium NT-Pro-B Natriuret Pep 1207.0 H Total Protein Albumin 05/01/22 04/30/22 04/30/22 04:53 05:42 05:42 RBC 4.15 L Hgb 12.8 L Hct 38.7 L Neut % (Auto) 83.5 H Lymph % (Auto) 7.6 L Lymph # (Auto) 0.74 L Absolute Neutrophils 8.12 H BUN 5 L 5 L Calcium 8.0 L 8.2 L NT-Pro-B Natriuret Pep Total Protein 5.3 L 5.6 L Albumin 2.7 L 2.9 L Meds: Medications Acetaminophen/Butalbital/Caffeine (Butalb/Acetaminophen/Caffeine 1 Tablet) 2 tab PO Q4HP PRN PRN Reason: Headache Hydromorphone HCl (Hydromorphone 1 Mg/Ml Syringe) 1 mg IV Q2HP PRN; Protocol PRN Reason: Per Pain Protocol Last Admin: 05/01/22 11:16 Dose: 1 mg Ciprofloxacin (Cipro) 400 mg in 200 mls @ 200 mls/hr IV Q12H SOLO; Protocol Last Admin: 05/02/22 08:49 Dose: 200 mls/hr Metronidazole (Flagyl) 500 mg in 100 mls @ 100 mls/hr IV Q6H [facility]; Protocol Last Infusion: 05/02/22 08:55 Dose: Infused Acetaminophen (Ofirmev) 1,000 mg in 100 mls @ 200 mls/hr IV Q6H [facility]; Protocol Last Infusion: 05/02/22 05:59 Dose: Infused Metoclopramide HCl (Metoclopramide 10 Mg/2 Ml Vial) 10 mg IV Q6 SOLO Last Admin: 05/02/22 05:20 Dose: 10 mg Metoprolol Tartrate (Metoprolol Tartrate 25 Mg Tablet) 12.5 mg PO BID SOLO Last Admin: 05/02/22 08:48 Dose: 12.5 mg Ondansetron HCl (Ondansetron 4 Mg/2 Ml Vial) 4 mg IV Q6HP PRN PRN Reason: Nausea And Vomiting Last Admin: 05/01/22 18:11 Dose: 4 mg Promethazine HCl (Promethazine 25 Mg/Ml Vial) 12.5 mg IV Q4HP PRN PRN Reason: Nausea And Vomiting Sodium Chloride (0.9 % Sodium Chloride 10 Ml Syringe) 10 ml IV Q8 SOLO Last Admin: 05/02/22 05:20 Dose: 10 ml A/P Assessment and plan (1) Atrial fibrillation with rapid ventricular response: Status: Acute Narrative A/P Narrative: #AF w/ RVR -Unclear underlying etiology, no known hx of cardiac arrhythmias -DDx: age, physiologic stress, cardiomyopathy, ischemia -Investigations: EKG, trop, BNP, BMP, Mg, Phos, CXR -Tx: Lopressor 5mg IV x 1, Toprol XL 25mg PO x 1. CHADSVASC2 = 0 -Monitor on telemetry 05/02: The patient was given Lopressor 5 mg IV x2, digoxin 500 mcg IV x1 and Toprol 25 mg p.o. x1 yesterday. He had an echo cardiogram performed which is pending. He will be transition to Lopressor 12.5 mg p.o. twice daily. He is clinically optimized and may follow-up with cardiology in an outpatient setting. Time Spent With Patient Time: Total time spent is greater than 50% in coordination of care (as documented) at patient's floor/unit and/or counseling patient: Total time spent with greater than 50% in coordination of care (as documented) at patient's floor/unit and/or counseling patient:: 25 - 35 minutes QUALITY VTE Deep Vein Thrombosis/Pulmonary Embolism Present on Admission: No
--- NOTE | 2022-05-02 14:12 | General Surgery Progress Note ---
SUBJECTIVE Subjective Patient information: Note initiated : 05/02/22 at 2:06 pm Service Date, if different from initiated Date: [] Patient: Elkin Boucher 61 y/o M admitted on 04/27/22 for stomach ulcer. Chief Complaint: [] Principal diagnosis: Acute diverticulitis Interval history: Patient developed acute tachycardia with evidence of atrial fibrillation with fast ventricular response on yesterday. He then spontaneously converted to supraventricular tachycardia with multiple PACs. He was seen by hospitalist and and treated. He is now having sinus rhythm with heart rate averaging about 60. He has been ambulating without difficulty. He has not had any similar episodes . he denies chest pain and did not have shortness of breath He states that his left lower quadrant and suprapubic abdominal pain is much improved . He is afebrile and his white blood count is 8.2. Constitutional Vitals: Vital Signs Temp Pulse Resp BP Pulse Ox O2 Del Method 97.6 F 56 L 16 139/91 99 05/02/22 12:00 05/02/22 12:00 05/02/22 12:00 05/02/22 12:00 05/02/22 12:00 05/02/22 12:00 Period Temp Pulse Resp BP Sys/Silva Pulse Ox O2 Del Method O2 Flow Rate Last 24 Hr 97.6 F-98.6 F 55-90 13-22 122-152/68-91 93-99 Room Air-Room Air Intake and Output 05/02/22 05/02/22 05/02/22 03:59 11:59 19:59 Intake Total 1660 450 100 Output Total 2100 Balance -440 450 100 Weight 221 lb 9.6 oz Intake & Output: Intake & Output 05/02/22 05/02/22 05/02/22 03:59 11:59 19:59 Intake Total 1660 450 100 Output Total 2100 Balance -440 450 100 Weight 221 lb 9.6 oz Intake: IV 1010 450 100 Sodium Phosphate 30 Mmol In 510 Dextrose 5% in Water 500 ml @ 85 mls/hr IV ONCE [facility]O Rx#: [id number] Oral 650 Output: Void Amount 1200 Urine/Stool Mix 900 Other: Urine Appearance Clear Urine Color Yellow # Voids 1 # Bowel Movements 1 Eye Eye exam: Present EOMI ENT ENT exam: Present mucous membranes moist, normal external ear exam and normal oropharynx Neck Neck exam: Present full ROM and normal inspection; Absent lymphadenopathy or tenderness Respiratory Respiratory exam: Present normal respiratory exam; Absent CTAB, rales, respiratory distress or rhonchi Cardiovascular Cardiovascular exam: Present normal rate and rhythm (Heart rate 60), +S1 and +S2; Absent JVD or RRR GI/Abdominal GI/Abdominal exam: Present normal bowel sounds and tenderness (Mild tenderness to the suprapubic area); Absent distended Extremities Exam Extremities exam: Present full ROM, normal inspection and neurovascular intact Neurological Exam Neurological exam: Present alert and oriented X3 Psychiatric Psychiatric exam: Present normal affect and normal mood A/P Assessment and plan (1) Atrial fibrillation with rapid ventricular response: Status: Acute (2) Diverticulitis of intestine with abscess: Status: Acute Plan Patient is encouraged to ambulate and increase cardiac rhythm remained stable he can be discharged home on medication with follow-up by cardiology Sepsis Sepsis Identified: No Time Spent With Patient Time: Total time spent is greater than 50% in coordination of care (as documented) at patient's floor/unit and/or counseling patient:
[2022-05-03] MEDS: ACETAMINOPHEN 1,000 MG/100 ML BAG IV SCH ×3 (00:11→12:37)
[2022-05-03] MEDS: metroNIDAZOLE 500 MG/100 ML BAG IV SCH ×2 (05:18→12:37)
[2022-05-03] MEDS: METOCLOPRAMIDE 10 MG/2 ML VIAL IV SCH ×2 (05:19→12:38)
[2022-05-03] MEDS: 0.9 % SODIUM CHLORIDE 10 ML SYRINGE IV SCH ×2 (05:32→12:38)
--- NOTE | 2022-05-03 08:41 | Internal Med Progress Note ---
SUBJECTIVE Subjective Patient information: Note initiated : 05/03/22 at 8:40 am Service Date, if different from initiated Date: [] Patient: Elkin Boucher 61 y/o M admitted on 04/27/22 for stomach ulcer. Chief Complaint: [SVT] Principal diagnosis: Acute diverticulitis Interval history: The patient was resting comfortably in his chair eating breakfast today. Constitutional Vitals: Vital Signs Temp Pulse Resp BP Pulse Ox O2 Del Method 98.2 F 56 L 16 159/88 97 05/03/22 07:56 05/03/22 07:56 05/03/22 07:56 05/03/22 07:56 05/03/22 07:56 05/03/22 07:56 Period Temp Pulse Resp BP Sys/Silva Pulse Ox O2 Del Method O2 Flow Rate Last 24 Hr 97.6 F-98.5 F 56-76 16-18 118-159/69-91 95-99 Room Air-Room Air Intake and Output 05/02/22 05/03/22 05/03/22 19:59 03:59 11:59 Intake Total 400 600 200 Balance 400 600 200 Weight 100.38 kg Intake & Output: Intake & Output 05/02/22 05/03/22 05/03/22 19:59 03:59 11:59 Intake Total 400 600 200 Balance 400 600 200 Weight 100.38 kg Intake: IV 400 400 200 Oral 200 Other: Meal Lunch Percent of Meal Consumed 75% Feeding Ability Independent Urine Appearance Clear Urine Color Yellow Stool Size Small Small Stool Color Brown Stool Consistency Soft Loose # Voids 1 1 # Bowel Movements 1 1 Head Head exam: Present atraumatic and normal inspection Eye Eye exam: Present normal appearance ENT ENT exam: Present mucous membranes moist, normal exam and normal external ear exam Neck Neck exam: Present normal inspection Respiratory Respiratory exam: Present normal respiratory exam Cardiovascular Cardiovascular exam: Present normal rate and rhythm GI/Abdominal GI/Abdominal exam: Present normal bowel sounds Back Exam Back exam: Present normal inspection Neurological Exam Neurological exam: Present alert and oriented X3 Skin Skin exam: Present intact and warm OBJ DATA Labs CBC & Chem 7: 05/02/22 04:14 05/01/22 04:53 Labs: Abnormal Lab Results 05/02/22 05/02/22 05/01/22 15:04 04:14 14:34 RBC 4.62 L Hgb Hct Lymph % (Auto) 10.8 L Lymph # (Auto) 0.88 L BUN Calcium NT-Pro-B Natriuret Pep 798.1 H 1207.0 H Total Protein Albumin 05/01/22 05/01/22 04:53 04:53 RBC 4.02 L Hgb 12.3 L Hct 37.3 L Lymph % (Auto) 12.0 L Lymph # (Auto) 0.94 L BUN 5 L Calcium 8.0 L NT-Pro-B Natriuret Pep Total Protein 5.3 L Albumin 2.7 L Meds: Medications Acetaminophen/Butalbital/Caffeine (Butalb/Acetaminophen/Caffeine 1 Tablet) 2 tab PO Q4HP PRN PRN Reason: Headache Hydromorphone HCl (Hydromorphone 1 Mg/Ml Syringe) 1 mg IV Q2HP PRN; Protocol PRN Reason: Per Pain Protocol Last Admin: 05/01/22 11:16 Dose: 1 mg Ciprofloxacin (Cipro) 400 mg in 200 mls @ 200 mls/hr IV Q12H [facility]; Protocol Last Infusion: 05/02/22 21:56 Dose: Infused Metronidazole (Flagyl) 500 mg in 100 mls @ 100 mls/hr IV Q6H [facility]; Protocol Last Infusion: 05/03/22 06:24 Dose: Infused Acetaminophen (Ofirmev) 1,000 mg in 100 mls @ 200 mls/hr IV Q6H [facility]; Protocol Last Infusion: 05/03/22 07:03 Dose: Infused Metoclopramide HCl (Metoclopramide 10 Mg/2 Ml Vial) 10 mg IV Q6 [facility] Last Admin: 05/03/22 05:19 Dose: 10 mg Metoprolol Tartrate (Metoprolol Tartrate 25 Mg Tablet) 12.5 mg PO BID [facility] Last Admin: 05/02/22 20:59 Dose: 12.5 mg Ondansetron HCl (Ondansetron 4 Mg/2 Ml Vial) 4 mg IV Q6HP PRN PRN Reason: Nausea And Vomiting Last Admin: 05/01/22 18:11 Dose: 4 mg Promethazine HCl (Promethazine 25 Mg/Ml Vial) 12.5 mg IV Q4HP PRN PRN Reason: Nausea And Vomiting Sodium Chloride (0.9 % Sodium Chloride 10 Ml Syringe) 10 ml IV Q8 [facility] Last Admin: 05/03/22 05:32 Dose: 10 ml A/P Assessment and plan (1) Atrial fibrillation with rapid ventricular response: Status: Acute Narrative A/P Narrative: #AF w/ RVR -Unclear underlying etiology, no known hx of cardiac arrhythmias -DDx: age, physiologic stress, cardiomyopathy, ischemia -Investigations: EKG, trop, BNP, BMP, Mg, Phos, CXR -Tx: Lopressor 5mg IV x 1, Toprol XL 25mg PO x 1. CHADSVASC2 = 0 -Monitor on telemetry 05/02: The patient was given Lopressor 5 mg IV x2, digoxin 500 mcg IV x1 and Toprol 25 mg p.o. x1 yesterday. He had an echo cardiogram performed which is pending. He will be transition to Lopressor 12.5 mg p.o. twice daily. He is clinically optimized and may follow-up with cardiology in an outpatient setting. 05/03: The patient was monitored for an additional 24 hours. He will be discharged on Lopressor 12.5 mg p.o. twice daily and follow-up with cardiology and his primary care physician. Time Spent With Patient Time: Total time spent is greater than 50% in coordination of care (as documented) at patient's floor/unit and/or counseling patient: Subsequent: Total time with patient: 25 - 34 minutes QUALITY VTE Deep Vein Thrombosis/Pulmonary Embolism Present on Admission: No
[2022-05-03] MEDS: METOPROLOL TARTRATE 25 MG TABLET PO SCH (08:47)
[2022-05-03] MEDS: CIPROFLOXACIN 400 MG/200 ML BAG IV SCH (08:47)
--- NOTE | 2022-05-03 13:21 | Discharge Summary ---
Discharge Provider Provider IMPORTANT FOLLOW-UP INFORMATION FOR PCP: Patient information: Note initiated : 05/03/22 at 1:13 pm Service Date, if different from initiated Date: [] Patient: Elkin Boucher 61 y/o M admitted on 04/27/22 for stomach ulcer. Chief Complaint: [] Date of admission: 04/27/22 19:09 Discharge date: 05/03/22 Primary care physician: Giuliana Jolly DO Admitting clinician: Roxanne Borrego Attending physician on admission: Roxanne Borrego Consults: 04/27/22 Consult to Physician [CONS] Stat Comment: Consulting Provider: Roxanne Borrego Reason For Exam: Physician to Consult 05/01/22 13:57 Consult to Physician [CONS] Routine Comment: Consulting Provider: Wong Lerma Reason For Exam: Physician to Consult 05/01/22 14:27 Consult to Physician [CONS] Stat Comment: Consulting Provider: Wong Lerma Reason For Exam: Physician to Consult Attending physician on discharge: Roxanne Borrego Discharging clinician: Roxanne Borrego COURSE Hospital Course Hospital course: 61-year-old male admitted on with complaint of left lower quadrant and hypogastric pain. He had CT evidence of acute diverticulitis with some free air. He was treated with antibiotics and had clinical improvement. Follow-up CT showed resolution of the free air and some resolution of the diverticulitis however he had 2 small developing abscesses. He has been continued on antibiotics and is clinically stable from a GI standpoint. 2 days ago he developed some anxiety and nervousness. He had tachycardia on clinical exam and had a rhythm suggestive of atrial fibrillation. This converted to SVT with multiple PACs prior to treatment. He was seen by hospitalist staff and was treated with beta-blockers. He converted to normal sinus rhythm and has been in normal sinus rhythm since yesterday. He has not had any chest discomfort or dysrhythmia over the past 36 hours. He is clinically stable at this time and is discharged home. He will have follow-up with his primary care provider within the next week and will possibly need cardiology evaluation. Discharge diagnosis: Acute diverticulitis with abscess Secondary discharge diagnosis: Atrial fibrillation with rapid ventricular response Reason for admission: Acute abdominal pain with diverticulitis Procedures: None Pertinent studies/significant findings: CT of abdomen and pelvis with IV contrast x2 Complications: None Time Spent with Patient Time attestation: Total time spent providing and/or coordinating discharge services: Time spent: Less than 30 minutes Physical Examination Vital Signs Vital signs: Temp Pulse Resp BP Pulse Ox O2 Del Method 98.1 F 59 L 14 126/76 98 05/03/22 11:17 05/03/22 11:17 05/03/22 11:17 05/03/22 11:17 05/03/22 11:17 05/03/22 11:17 General physical appearance General physical exam: well developed, well nourished, no distress and no pain Eyes Eye exam: PERRL and normal ocular movement ENT ENT exam: normal mucosa and no congestion Head Head exam IM: Present atraumatic, normal inspection and normocephalic Neck Neck exam: no masses, no bruits, trachea midline, no lymphadenopathy and no venous distension Cardiovascular Cardiovascular exam IM: Present normal rate and rhythm, bradycardia, RRR, +S1 and +S2; Absent JVD Respiratory Respiratory exam: normal expansion, normal respiratory effort and clear to auscultation Abdomen Abdomen: Present soft and tender Integumentary Integumentary: Present no rash, no growths and no abnormal pigmentation Neurologic Neurologic: Present normal coordination and normal sensation Musculoskeletal Musculoskeletal: Present normal gait and normal posture Psychiatric Psychiatric: Present oriented to time, oriented to person, oriented to place, speech is normal and memory intact Discharge Plan Patient/Caregiver Discharge Instructions Activity: increase activity as tolerated Diet: Regular Diet Instructions: Ciprofloxacin (By mouth), Metronidazole (By mouth), Diverticulitis (DC) Activity Restrictions/Additional Instructions: Resume home diet as tolerated. Increase activity as tolerated. Follow-up with Giuliana Jolly in one week. The office will contact you to schedule your appointment. If you don't hear from the office by , 05/05, please contact them to schedule. Return to [facility] on 05/13, at 10:[address] scan of your abdomen. Take all medication as directed. Your medications were electronically transmitted to [facility]. Take your prescription, insurance cards, and photo ID to [facility] your medication. Return to ER for fever, chills, uncontrolled pain, inability to urinate or have a bowel movement, nausea and/or vomiting, swelling, redness, signs of infection, shortness of breath, chest pain, return of symptoms, or other acute symptom. This discharge packet is provided to you to help keep you informed about your care. We want to ensure you get everything you need when you go home. You will also be receiving a call from us in a few days to follow up with you and see how you are doing since your discharge. This gives us a chance to listen to any concerns you maybe experiencing since you were discharged or any additional needs you may have, as well as providing us feedback on your care experience. We strive to always provide excellent care and thank you for your feedback and for choosing [facility]. Prescriptions: New metronidazole 500 mg tablet 500 mg PO TID Qty: 60 0RF ciprofloxacin HCl 500 mg tablet 500 mg PO BID Qty: 40 0RF Other Ambulatory Orders: CT abdomen pelvis w con (Routine) Timeframe: [id number] Facility: [facility] - Location: Radiology Ordered By: Roxanne Borrego Prescription drug monitoring program results: PDMP not reviewed Follow Up Plan Follow up with: Roxanne Borrego MD [Physician] - (Office visit in [address] of abdomen and pelvis with IV contrast 2 days prior to office visit) Giuliana Jolly DO [Primary Care Provider] - (Follow-up in one week.) Patient Disposition: Home, Self-Care Health Concerns: Patient had new onset of atrial fibrillation with rapid ventricular response Patient should have cardiology follow-up in 1-2weeks Prognosis: Good Rehab Potential: Good I certify that the patient requires SNF services: No Overall status at discharge: patient is progressing back to baseline Discharge Orders: Discharge Order (Routine); Ordered 05/03/22 Ordered By: Roxanne Borrego Discharge Comment: pt progressing to baseline Pending Pending Pending: Resuscitation Status Resuscitate (Full Code) Diet Full Liquid Diet Start MonMay 01 1122 Hydromorphone HCl (Hydromorphone 1 Mg/Ml Syringe) 1 mg IV Q2HP PRN; Protocol PRN Reason: Per Pain Protocol Last Admin: 05/01/22 11:16 Dose: 1 mg Documented By: LEXII Co-signed By: TAYO Admin: 05/01/22 01:46 Dose: 1 mg Documented By: Admin: 04/30/22 21:22 Dose: 1 mg Documented By: Admin: 04/30/22 17:32 Dose: 1 mg Documented By: Admin: 04/30/22 14:12 Dose: 1 mg Documented By: Admin: 04/30/22 10:52 Dose: 1 mg Documented By: Admin: 04/30/22 02:18 Dose: 1 mg Documented By: Admin: 04/29/22 20:59 Dose: 1 mg Documented By: Admin: 04/29/22 17:33 Dose: 1 mg Documented By: Admin: 04/29/22 12:31 Dose: 1 mg Documented By: Admin: 04/29/22 08:41 Dose: 1 mg Documented By: Admin: 04/29/22 02:28 Dose: 1 mg Documented By: Admin: 04/28/22 20:13 Dose: 1 mg Documented By: Admin: 04/28/22 18:05 Dose: 1 mg Documented By: [email or web address] Admin: 04/28/22 16:05 Dose: 1 mg Documented By: [email or web address] Admin: 04/28/22 14:13 Dose: 1 mg Documented By: [email or web address] Admin: 04/28/22 10:00 Dose: 1 mg Documented By: [email or web address] Admin: 04/28/22 06:42 Dose: 1 mg Documented By: [email or web address] Admin: 04/27/22 22:19 Dose: 1 mg Documented By: Admin: 04/27/22 17:29 Dose: 1 mg Documented By: KAYLA Ciprofloxacin (Cipro) 400 mg in 200 mls @ 200 mls/hr IV Q12H [facility]; Protocol Last Infusion: 05/03/22 12:38 Dose: 0 mls/hr Documented By: Admin: 05/03/22 08:47 Dose: 200 mls/hr Documented By: Infusion: 05/02/22 21:56 Dose: 0 mls/hr Documented By: Admin: 05/02/22 20:51 Dose: 200 mls/hr Documented By: Infusion: 05/02/22 10:49 Dose: 0 mls/hr Documented By: Admin: 05/02/22 08:49 Dose: 200 mls/hr Documented By: Infusion: 05/01/22 21:30 Dose: 0 mls/hr Documented By: Admin: 05/01/22 20:30 Dose: 200 mls/hr Documented By: Infusion: 05/01/22 11:17 Dose: 0 mls/hr Documented By: LEXII Co-signed By: TAYO Admin: 05/01/22 10:02 Dose: 200 mls/hr Documented By: LEXII Co-signed By: [email or web address] Infusion: 04/30/22 22:25 Dose: 0 mls/hr Documented By: Admin: 04/30/22 21:22 Dose: 200 mls/hr Documented By: Infusion: 04/30/22 09:38 Dose: 0 mls/hr Documented By: Admin: 04/30/22 08:03 Dose: 200 mls/hr Documented By: Infusion: 04/29/22 21:53 Dose: 200 mls/hr Documented By: Admin: 04/29/22 20:53 Dose: 200 mls/hr Documented By: Infusion: 04/29/22 09:50 Dose: 0 mls/hr Documented By: Admin: 04/29/22 08:41 Dose: 200 mls/hr Documented By: Infusion: 04/28/22 21:20 Dose: 0 mls/hr Documented By: Admin: 04/28/22 20:16 Dose: 200 mls/hr Documented By: Infusion: 04/28/22 10:05 Dose: 0 mls/hr Documented By: Admin: 04/28/22 09:56 Dose: 200 mls/hr Documented By: Infusion: 04/27/22 19:11 Dose: 0 mls/hr Documented By: Admin: 04/27/22 18:12 Dose: 200 mls/hr Documented By: KAYLA Metronidazole (Flagyl) 500 mg in 100 mls @ 100 mls/hr IV Q6H [facility]; Protocol Last Admin: 05/03/22 12:37 Dose: Not Given Documented By: Infusion: 05/03/22 06:24 Dose: 0 mls/hr Documented By: Admin: 05/03/22 05:18 Dose: 100 mls/hr Documented By: Infusion: 05/03/22 00:10 Dose: 0 mls/hr Documented By: Admin: 05/02/22 23:05 Dose: 100 mls/hr Documented By: Infusion: 05/02/22 19:05 Dose: 0 mls/hr Documented By: Admin: 05/02/22 18:01 Dose: 100 mls/hr Documented By: Infusion: 05/02/22 13:20 Dose: 0 mls/hr Documented By: Admin: 05/02/22 12:06 Dose: 100 mls/hr Documented By: Infusion: 05/02/22 08:55 Dose: 0 mls/hr Documented By: Admin: 05/02/22 05:19 Dose: 100 mls/hr Documented By: Infusion: 05/02/22 00:50 Dose: 0 mls/hr Documented By: Admin: 05/01/22 23:50 Dose: 100 mls/hr Documented By: Infusion: 05/01/22 19:15 Dose: 0 mls/hr Documented By: Admin: 05/01/22 18:11 Dose: 100 mls/hr Documented By: LEXII Co-signed By: TAYO Infusion: 05/01/22 13:10 Dose: 0 mls/hr Documented By: LEXII Co-signed By: [email or web address] Admin: 05/01/22 11:50 Dose: 100 mls/hr Documented By: LEXII Co-signed By: [email or web address] Infusion: 05/01/22 08:22 Dose: 0 mls/hr Documented By: LEXII Co-signed By: [email or web address] Admin: 05/01/22 05:25 Dose: 100 mls/hr Documented By: Infusion: 05/01/22 00:35 Dose: 0 mls/hr Documented By: Admin: 04/30/22 23:32 Dose: 100 mls/hr Documented By: Infusion: 04/30/22 18:35 Dose: 0 mls/hr Documented By: Infusion: 04/30/22 17:35 Dose: 100 mls/hr Documented By: Infusion: 04/30/22 17:34 Dose: 0 mls/hr Documented By: Admin: 04/30/22 17:32 Dose: 100 mls/hr Documented By: Infusion: 04/30/22 12:55 Dose: 0 mls/hr Documented By: Infusion: 04/30/22 11:42 Dose: 100 mls/hr Documented By: Infusion: 04/30/22 11:01 Dose: 0 mls/hr Documented By: Admin: 04/30/22 11:01 Dose: 100 mls/hr Documented By: Infusion: 04/30/22 06:33 Dose: 100 mls/hr Documented By: Admin: 04/30/22 05:33 Dose: 100 mls/hr Documented By: Infusion: 04/30/22 00:20 Dose: 0 mls/hr Documented By: Admin: 04/29/22 23:19 Dose: 100 mls/hr Documented By: Infusion: 04/29/22 19:10 Dose: 0 mls/hr Documented By: Infusion: 04/29/22 18:14 Dose: 100 mls/hr Documented By: Infusion: 04/29/22 17:40 Dose: 0 mls/hr Documented By: Admin: 04/29/22 17:34 Dose: 100 mls/hr Documented By: Infusion: 04/29/22 13:35 Dose: 0 mls/hr Documented By: Admin: 04/29/22 12:31 Dose: 100 mls/hr Documented By: Infusion: 04/29/22 07:15 Dose: 0 mls/hr Documented By: Admin: 04/29/22 06:08 Dose: 100 mls/hr Documented By: Infusion: 04/29/22 01:25 Dose: 0 mls/hr Documented By: Admin: 04/29/22 00:23 Dose: 100 mls/hr Documented By: Infusion: 04/28/22 18:35 Dose: 0 mls/hr Documented By: Admin: 04/28/22 17:34 Dose: 100 mls/hr Documented By: [email or web address] Infusion: 04/28/22 14:12 Dose: 0 mls/hr Documented By: Admin: 04/28/22 12:11 Dose: 100 mls/hr Documented By: Infusion: 04/28/22 06:38 Dose: 0 mls/hr Documented By: Admin: 04/28/22 05:06 Dose: 100 mls/hr Documented By: Infusion: 04/28/22 02:10 Dose: 0 mls/hr Documented By: Admin: 04/27/22 23:56 Dose: 100 mls/hr Documented By: Infusion: 04/27/22 20:55 Dose: 0 mls/hr Documented By: Admin: 04/27/22 19:47 Dose: 100 mls/hr Documented By: ANNETTE Acetaminophen (Ofirmev) 1,000 mg in 100 mls @ 200 mls/hr IV Q6H [facility]; Protocol Last Admin: 05/03/22 12:37 Dose: Not Given Documented By: Infusion: 05/03/22 07:03 Dose: 0 mls/hr Documented By: Admin: 05/03/22 06:26 Dose: 200 mls/hr Documented By: Infusion: 05/03/22 01:14 Dose: 0 mls/hr Documented By: Admin: 05/03/22 00:11 Dose: 200 mls/hr Documented By: Infusion: 05/02/22 18:01 Dose: 0 mls/hr Documented By: Admin: 05/02/22 17:26 Dose: 200 mls/hr Documented By: Infusion: 05/02/22 13:00 Dose: 0 mls/hr Documented By: Admin: 05/02/22 12:07 Dose: 200 mls/hr Documented By: Infusion: 05/02/22 05:59 Dose: 0 mls/hr Documented By: Admin: 05/02/22 05:19 Dose: 200 mls/hr Documented By: Infusion: 05/02/22 00:30 Dose: 0 mls/hr Documented By: Admin: 05/01/22 23:59 Dose: 200 mls/hr Documented By: Infusion: 05/01/22 20:30 Dose: 0 mls/hr Documented By: Admin: 05/01/22 19:16 Dose: 200 mls/hr Documented By: Infusion: 05/01/22 14:40 Dose: 0 mls/hr Documented By: Admin: 05/01/22 14:07 Dose: 200 mls/hr Documented By: LEXII Co-signed By: [email or web address] Infusion: 05/01/22 06:00 Dose: 0 mls/hr Documented By: Admin: 05/01/22 05:25 Dose: 200 mls/hr Documented By: Infusion: 05/01/22 00:05 Dose: 0 mls/hr Documented By: Admin: 04/30/22 23:33 Dose: 200 mls/hr Documented By: Infusion: 04/30/22 18:07 Dose: 0 mls/hr Documented By: Admin: 04/30/22 17:32 Dose: 200 mls/hr Documented By: Infusion: 04/30/22 11:40 Dose: 0 mls/hr Documented By: Admin: 04/30/22 11:00 Dose: 200 mls/hr Documented By: Infusion: 04/30/22 06:31 Dose: 0 mls/hr Documented By: Admin: 04/30/22 05:33 Dose: 200 mls/hr Documented By: Infusion: 04/29/22 23:50 Dose: 0 mls/hr Documented By: Admin: 04/29/22 23:18 Dose: 200 mls/hr Documented By: Infusion: 04/29/22 18:14 Dose: 0 mls/hr Documented By: Admin: 04/29/22 17:33 Dose: 200 mls/hr Documented By: Infusion: 04/29/22 13:05 Dose: 0 mls/hr Documented By: Admin: 04/29/22 12:31 Dose: 200 mls/hr Documented By: Infusion: 04/29/22 06:00 Dose: 0 mls/hr Documented By: Admin: 04/29/22 05:29 Dose: 200 mls/hr Documented By: Infusion: 04/29/22 00:00 Dose: 0 mls/hr Documented By: Admin: 04/28/22 23:28 Dose: 200 mls/hr Documented By: TARYN Metoclopramide HCl (Metoclopramide 10 Mg/2 Ml Vial) 10 mg IV Q6 [facility] Admin: 05/03/22 12:38 Dose: Not Given Documented By: Admin: 05/03/22 05:19 Dose: 10 mg Documented By: Admin: 05/02/22 23:06 Dose: 10 mg Documented By: Admin: 05/02/22 17:25 Dose: 10 mg Documented By: Admin: 05/02/22 12:07 Dose: 10 mg Documented By: Admin: 05/02/22 05:20 Dose: 10 mg Documented By: Admin: 05/01/22 23:51 Dose: 10 mg Documented By: Admin: 05/01/22 16:56 Dose: Not Given Documented By: Admin: 05/01/22 13:10 Dose: 10 mg Documented By: LEXII Co-signed By: TAYO Admin: 05/01/22 05:25 Dose: 10 mg Documented By: Admin: 04/30/22 23:33 Dose: 10 mg Documented By: Admin: 04/30/22 17:31 Dose: 10 mg Documented By: Admin: 04/30/22 11:01 Dose: 10 mg Documented By: Admin: 04/30/22 05:33 Dose: 10 mg Documented By: Admin: 04/29/22 23:19 Dose: 10 mg Documented By: Admin: 04/29/22 17:34 Dose: 10 mg Documented By: Admin: 04/29/22 12:32 Dose: 10 mg Documented By: Admin: 04/29/22 05:29 Dose: 10 mg Documented By: Admin: 04/28/22 23:26 Dose: 10 mg Documented By: Admin: 04/28/22 17:33 Dose: 10 mg Documented By: TAYO Metoprolol Tartrate (Metoprolol Tartrate 25 Mg Tablet) 12.5 mg PO BID [facility] Last Admin: 05/03/22 08:47 Dose: 12.5 mg Documented By: Admin: 05/02/22 20:59 Dose: 12.5 mg Documented By: Admin: 05/02/22 08:48 Dose: 12.5 mg Documented By: SHANTI Ondansetron HCl (Ondansetron 4 Mg/2 Ml Vial) 4 mg IV Q6HP PRN PRN Reason: Nausea And Vomiting Last Admin: 05/01/22 18:11 Dose: 4 mg Documented By: LEXII Co-signed By: TAYO Admin: 04/29/22 14:13 Dose: 4 mg Documented By: Admin: 04/28/22 16:15 Dose: 4 mg Documented By: Admin: 04/28/22 08:22 Dose: 4 mg Documented By: TAYO Sodium Chloride (0.9 % Sodium Chloride 10 Ml Syringe) 10 ml IV Q8 [facility] Last Admin: 05/03/22 12:38 Dose: Not Given Documented By: Admin: 05/03/22 05:32 Dose: 10 ml Documented By: Admin: 05/02/22 20:52 Dose: 10 ml Documented By: Admin: 05/02/22 14:44 Dose: 10 ml Documented By: Admin: 05/02/22 05:20 Dose: 10 ml Documented By: Admin: 05/01/22 22:04 Dose: 10 ml Documented By: Admin: 05/01/22 13:10 Dose: Not Given Documented By: Admin: 05/01/22 05:49 Dose: Not Given Documented By: Admin: 04/30/22 21:50 Dose: Not Given Documented By: Admin: 04/30/22 13:11 Dose: Not Given Documented By: Admin: 04/30/22 06:01 Dose: Not Given Documented By: Admin: 04/29/22 20:54 Dose: Not Given Documented By: Admin: 04/29/22 15:23 Dose: Not Given Documented By: Admin: 04/29/22 05:55 Dose: Not Given Documented By: Admin: 04/28/22 20:21 Dose: Not Given Documented By: Admin: 04/28/22 14:12 Dose: Not Given Documented By: [email or web address] Admin: 04/28/22 04:42 Dose: Not Given Documented By: Admin: 04/27/22 20:22 Dose: Not Given Documented By: ANNETTE Shift Summary 05/03/22 04:12 Shift Summary by Natali Montes Primary Diagnosis: Acute Diverticulitis Registration Status: IP Pertinent Medical Dx/Issue(s): NEW AFIB, Hepatitis Notes from Rapid Response: 12/30/2022 At 1320 the patient pressed the call light and informed nurse that they had sudden onset "fast heart rate and chest pressure". Vital signs were obtained and the patient's BP was 147/77, Apical pulse was noted to be 140BPM and irregular. During my initial assessment this shift his heart rate was not irregular. Dr. Borrego was notified and gave a verbal order for "an EKG, and to contact the Hospitalist for consult". EKG obtained (new onset a-fib). Attempted to call the Hospitalist at 1330 and 1345 with no response. tool straightener applied to patient and ICU notified. At 1423 a rapid response was called due to pt complaint of increased chest pressure; EKG, labs and CXR obtained. 5mg IV Lopressor given x1, 25mg PO Metoprolol x1. Patient reports feeling better. BP is elevated at 165/97, HR varies from 90BPM to 150BPM. Med management (antibiotics, diuretics, BP): IV Flagyl and Cipro; Lopressor PO 12.5mg Skin/Wound Care: WNL Vital Signs with Trends: SBP 118-128; HR 58-60 all other VSS on RA tool straightener: SR this shift Pain management (acute vs. chronic): Denied having pain, scheduled OFIRMEV, no PRN meds given Lab/Rad (abnormal, trends): BNP 798.1 Neuro/Mental Status: Alert and oriented x4 Urinary Elimination Device: Urinal and BR Urinary output greater than 30mL/hr? Yes- unmeasured voids this shift Date of last BM: 05/02/21- small loose Lines/Tubes: RFA infiltrated, replaced with RFA #2 SL Activity: Independent in room and halls; Ambulated frequently in halls this shift Discharge Plan (needs, disposition, etc): Expected to discharge today Initialized on 05/03/22 04:12 - END OF NOTE
== END 2022-05-03 14:15 | disposition home or self-care (01) | DRG 392 ==
LOC: ED 15:31 → ICU 19:05
PROVIDERS: ADMIT Family Medicine Adult Medicine; ATTEND Family Medicine Adult Medicine

== ENCOUNTER 2022-07-10 11:53 | Inpatient (IN) ==
[2022-07-10] MEDS ORDERED: IOPAMIDOL 100 ML BOTTLE IV ONE (11:54)
[2022-07-10 12:17] LABS: POC Calcium, Ionized 1.16 (1.16-1.32); POC Creatinine 1.2 (0.6-1.2)
[2022-07-10] MEDS ORDERED: ONDANSETRON 4 MG/2 ML VIAL IV ONE (12:54)
[2022-07-10] MEDS ORDERED: morphine 4 MG/ML VIAL IV ONE ×2 (12:54→15:13)
[2022-07-10] MEDS ORDERED: 0.9 % SODIUM CHLORIDE 1,000 ML IV ONE (12:54)
--- NOTE | 2022-07-10 12:54 | Emergency Department Note ---
Abdominal Pain HPI General Chief Complaint: Abdominal Pain Stated Complaint: diverticulitis Time Seen by Provider: 07/10/22 11:55 Source: patient Mode of arrival: ambulatory Limitations: no limitations History of Present Illness HPI Narrative: Narrative: The patient returns for concern of complications from his diverticulitis. Patient had a complicated diverticulitis last month and has been on antibiotics up until a couple days ago. Dr. Borrego then changed him over to a different antibiotic. Since then, patient has had increasing lower abdominal pain associated with increasing nausea and a general feeling of unwellness. Patient is concerned that he may either be having a reaction to the medication or having a worsening diverticulitis. He denies urinary problems. He denies fever. He denies any other associated problems. Related Data Previous Rx's Medication Instructions Recorded sulfamethoxazole 800 1 tab PO BID Diverticulitis #40 07/07/22 mg-trimethoprim 160 mg tablet tabs (Bactrim DS) Allergies Allergy/AdvReac Type Severity Reaction Status Date / Time No Known Drug Allergies Allergy Verified 07/07/22 10:30 enviromental Allergy Unknown Unknown Uncoded 07/07/22 10:30 Review of Systems ROS ROS Narrative: Narrative: All systems ED: reviewed and negative except as stated. PFSH Narrative Patient History Narrative: Narrative: Medical/Surgical/Family History All Active Problems (Updated 07/10/22 @ 14:00 by Husam Delong MD) Acute appendicitis (Acute) Atrial fibrillation with rapid ventricular response (Acute) Diverticulitis of intestine with abscess (Acute) Perforated gastric ulcer (Acute) Acute diverticulitis of intestine (Acute) Erectile dysfunction (Acute) Screening for colon cancer (Acute) Genital herpes in men (Chronic) Hepatitis (Chronic) Gout (Chronic) Arthritis (Chronic) Upper respiratory tract infection (Acute) Medical History Arthritis Erectile dysfunction Genital herpes in men Gout last flare 05/2017 Hepatitis Screening for colon cancer Surgical History History of colonoscopy 2010, repeat in 10 years Family History Grandmother Diabetes Maternal/Paternal Grandfather Diabetes Maternal/Paternal Social History Smoking Status: Never smoker Alcohol Intake Frequency: does not drink Substance Use: does not use and former substance user Exam Narrative Narrative: Narrative: General Limitations: no limitations General appearance: Present alert and in no apparent distress Head Head: Present atraumatic and normal inspection Eye Eye: Present normal appearance ENT ENT: Present mucous membranes moist Neck Neck: Present normal inspection, full ROM and trachea midline Chest Chest: Present normal inspection and symmetric chest wall rise Respiratory Respiratory: Present normal lung sounds bilaterally; Absent respiratory distress Cardiovascular Cardiovascular: Present regular rate and normal rhythm Adbominal Abdominal: Present soft, tenderness (Tenderness to palpate in the suprapubic area with no rebound or guarding) and normal bowel sounds; Absent distention, guarding, rebound or tenderness at McBurney's Point Extremities Extremities: Present normal inspection and full ROM Back Back: Present full ROM Neurological Neurological: Present alert and oriented X3 Psychiatric Psychiatric: Present normal affect and normal mood Skin Skin: Present warm (WNL) and dry Course Consultations Consultation #1: I spoke with the general surgeon, Dr. Borrego. He asked me to give a dose of Zosyn and admit this patient onto his service. Time: 13:58 Vital Signs Vital signs: Vital Signs Temperature 97.0 F 07/10/22 11:55 Pulse Rate 118 H 07/10/22 11:55 Respiratory Rate 18 07/10/22 11:55 Blood Pressure 115/76 07/10/22 11:55 Pulse Oximetry (%) 94 07/10/22 11:55 Oxygen Delivery Method Room Air 07/10/22 11:55 Temperature 97.0 F 07/10/22 11:55 Pulse Rate 78 07/10/22 13:30 Respiratory Rate 18 07/10/22 11:55 Blood Pressure 123/75 07/10/22 13:31 Pulse Oximetry (%) 95 07/10/22 13:30 Oxygen Delivery Method Room Air 07/10/22 11:55 [facility] MDM Narrative Medical decision making narrative: Narrative: The patient presents with lower abdominal pain. He has a known history of diverticulitis. He was recently changed medication. Plan to do appropriate la bs and reimage the abdomen with a CT. Lab Data Lab results reviewed: Yes I reviewed the patient's lab results. Labs: Lab Results 07/10/22 07/10/22 Range/Units 12:13 12:14 POC Hct 44.0 (41-55) POC VBG pH 7.41 (7.32-7.42) POC VBG pCO2 at Temp 38.6 L (41-51) POC VBG pO2 22 L (25-40) POC VBG HCO3 24.6 (24-28) POC VBG Total CO2 26.0 (25-29) POC Venous O2 Sat 38.0 L (40-70) POC VBG Base Excess 0 (-2-2) VBG Lactic Acid 1.1 (0.5-2) POC Sodium 132 L (133-145) POC Potassium 4.0 (3.3-5.1) POC Chloride 97 (96-108) POC Total CO2 24.0 (22-30) POC BUN 12 (6-20) POC Creatinine 1.2 (0.6-1.2) POC Glucose 113 H (70-105) POC WB Ioniz Calcium 1.16 (1.16-1.32) Radiology Data Radiology results reviewed: Yes I reviewed the patient's radiology results. Discharge Plan Patient/Caregiver Discharge Instructions Pt seen by [facility]/PA only: No Clinical Impression: Acute appendicitis Qualifiers: Acute appendicitis type: with localized peritonitis Appendicitis gangrene presence: without gangrene Appendicitis perforation presence: unspecified whether perforation present Appendicitis abscess presence: with abscess Qualified Code(s): K35.33 - Acute appendicitis with perforation, localized peritonitis, and gangrene, with abscess Patient Disposition: Xfer As Inpt ([facility]) Follow up with: Giuliana Jolly DO [Primary Care Provider] - Prescriptions: No Action sulfamethoxazole-trimethoprim [Bactrim DS] 800-160 mg tablet 1 tab PO BID Qty: 40 0RF
--- NOTE | 2022-07-10 13:57 | Cat Scan Report ---
History: Lower abdominal pain TECHNIQUE: Following injection of intravenous nonionic contrast the patient was imaged during the portal venous phase from above the diaphragm through the symphysis pubis. Sagittal and coronal reformats were created. The radiation exposure was limited using dose reduction technology. FINDINGS: The lung bases are clear. The liver is normal in size and homogeneous. The gallbladder and bile ducts are normal. Spleen is normal in size and homogeneous. No calcified stones or thickening of the gallbladder wall are present. The bile ducts are nondilated. No mass or inflammation are present in the pancreas. The stomach and small intestine are normal. The appendix is thickened and inflamed. At the tip of the appendix there is an abscess which measures 2.0 x 4.4 x 5.8 cm. There is stranding of fat around the cecum and appendix. No free intraperitoneal air is present. Patient also has diverticulitis in the descending and sigmoid colon. The abscess adjacent to the tip of the appendix is also a contiguous with the right side of the mid sigmoid. There is mild stranding of fat around the proximal mid sigmoid colon. Thickened wall of the sigmoid extends into the upper rectum. There is no evidence of large or small bowel obstruction. Aorta is normal in caliber and there is no plaque formation. Severe degenerative disc disease is present at L5-S1. Urinary bladder is unopacified and appears normal. Prostate is mildly enlarged but homogeneous. IMPRESSION: Acute diverticulitis. Low-grade diverticulitis distal sigmoid. Abscess at the tip of the appendix and contiguous with the right side of the distal sigmoid Dr. Delong was called with the report Interpreted and Authenticated by: Bk Mchugh 07/10/22
[2022-07-10] MEDS ORDERED: PIPERACILLIN SODIUM/TAZOBACTAM 3.375 GM in DEXTROSE 5% IN WATER 50 ML IV ONE (13:58)
[2022-07-10] MEDS ORDERED: PROMETHAZINE 25 MG/ML VIAL IV PRN (15:37)
[2022-07-10] MEDS ORDERED: 0.9 % SODIUM CHLORIDE 1,000 ML IV SCH (15:45)
[2022-07-10] MEDS: 0.9 % SODIUM CHLORIDE 1,000 ML IV SCH ×2 (15:55→16:57)
--- NOTE | 2022-07-10 16:03 | XRay Report ---
HISTORY: Preoperative for treatment of diverticulitis and appendicitis FINDINGS: The right diaphragm is moderately elevated. This is a chronic stable finding of undetermined etiology. The lungs are clear. There is no evidence of pneumonia, mass or congestive heart failure. The heart size mediastinum and fidelia are normal. There has been no change since 05/01/22. IMPRESSION: Elevated right diaphragm and no acute abnormality Interpreted and Authenticated by: Bk Mchugh 07/10/22
[2022-07-10] MEDS: PANTOPRAZOLE 40 MG VIAL IV SCH (16:57)
[2022-07-10] MEDS: MEROPENEM 2 GM in 0.9 % SODIUM CHLORIDE 50 ML IV SCH (16:57)
[2022-07-10] MEDS: ACETAMINOPHEN 1,000 MG/100 ML BAG IV SCH ×2 (16:58→20:53)
[2022-07-10] MEDS: HYDROmorphone 1 MG/ML SYRINGE IV PRN (18:36)
[2022-07-10] MEDS ORDERED: DOCUSATE SODIUM 100 MG CAPSULE PO SCH (21:00)
[2022-07-10] MEDS: SENNOSIDES 1 TABLET PO SCH (22:22)
[2022-07-11] MEDS: MEROPENEM 2 GM in 0.9 % SODIUM CHLORIDE 50 ML IV SCH ×4 (01:14→23:04)
[2022-07-11] MEDS: 0.9 % SODIUM CHLORIDE 10 ML SYRINGE IV SCH ×4 (01:15→21:31)
[2022-07-11] MEDS: ACETAMINOPHEN 1,000 MG/100 ML BAG IV SCH ×4 (05:35→21:29)
[2022-07-11 06:43] LABS: Basophils # (Auto) 0.04 K/mcL (0.00-0.30); Basophils % (Auto) 0.5 % (0.0-2.0); Eosinophils # (Auto) 0.08 K/mcL (0.00-0.70); Eosinophils % (Auto) 0.9 % (0.0-7.0); Hematocrit 38.4 % (40.1-51.0); Hemoglobin 12.5 g/dL (13.7-17.5); Lymphocytes # (Auto) 0.61 K/mcL (1.50-4.80); Lymphocytes % (Auto) 6.9 % (15.5-49.0); Mean Cell Volume 90.4 fL (80.0-100.0); Mean Corpuscular HGB Conc 32.6 g/dL (31.0-36.0); Mean Platelet Volume 10.6 fL (8.8-12.5); Monocytes # (Auto) 0.54 K/mcL (0.10-0.90); Monocytes % (Auto) 6.1 % (1.0-12.0); Neutrophils % (Auto) 85.1 % (38.0-78.0); Platelet Count 198 K/mcL (140-440); RBC 4.25 M/mcL (4.63-6.08); Red Cell Distribution Width 13.5 % (11.5-14.5); WBC 8.8 K/mcL (4.5-11.0)
[2022-07-11 07:46] LABS: ALT/SGPT 9 U/L (<40); AST/SGOT 11 U/L (<40); Albumin 3.2 gm/dL (3.2-5.2); Albumin/Globulin Ratio 1.1 (1.0-2.3); Alkaline Phosphatase 51 U/L (39-117); Bilirubin,Direct < 0.2 mg/dL (0-0.3); Bilirubin,Total 0.4 mg/dL (0.1-1.0); Blood Urea Nitrogen 10 mg/dL (8-23); Calcium 8.5 mg/dL (8.6-10.4); Carbon Dioxide 23 mmol/L (22-30); Chloride 103 mmol/L (96-108); Globulin 2.8 gm/dL (2.2-3.7); Glomerular Filtration Rate 95; Glucose 88 mg/dL (70-105); Lactate Dehydrogenase 142 U/L (135-225); Phosphorous 2.6 mg/dL (2.5-4.5); Triglycerides 70 mg/dL (<150); Uric Acid 4.5 mg/dL (2.5-8.0)
[2022-07-11] MEDS: PANTOPRAZOLE 40 MG VIAL IV SCH ×2 (08:12→16:57)
--- NOTE | 2022-07-11 17:10 | General Surgery Progress Note ---
SUBJECTIVE Subjective Patient information: Note initiated : 07/11/22 at 5:05 pm Service Date, if different from initiated Date: [] Patient: Elkin Boucher 61 y/o M admitted on 07/10/22 for diverticulitis. Chief Complaint: [] Principal diagnosis: Diverticulitis with pelvic abscess;Acute appendicitis Interval history: Patient is continuing to improve. He has less pain in his left lower quadrant and hypogastric area than last evening. He remains afebrile. He does complain of anorexia. He does not have any output per rectum. Patient has not made a decision to proceed with colon resection and this will be performed on Monday of this week. He is informed that he will need to have colostomy x3 to 4 months. Constitutional Vitals: Vital Signs Temp Pulse Resp BP Pulse Ox O2 Del Method 97.9 F 65 18 130/81 98 Room Air 07/11/22 16:00 07/11/22 16:00 07/11/22 16:00 07/11/22 16:00 07/11/22 16:00 07/11/22 16:00 Period Temp Pulse Resp BP Sys/Silva Pulse Ox O2 Del Method O2 Flow Rate Last 24 Hr 97.3 F-98.2 F 57-65 14-20 110-130/59-81 95-98 Room Air-Room r Intake and Output 07/11/22 07/11/22 07/11/22 03:59 11:59 19:59 Intake Total 1100 780 150 Output Total 200 Balance 1100 580 150 Weight 208 lb 3 oz Intake & Output: Intake & Output 07/11/22 07/11/22 07/11/22 03:59 11:59 19:59 Intake Total 1100 780 150 Output Total 200 Balance 1100 580 150 Weight 208 lb 3 oz Intake: IV 1100 300 150 Sodium Chloride 0.9% 1,000 ml @ 1000 125 mls/hr IV .Q8H [facility] Rx#: [id number] Merrem 2 gm In Sodium Chloride 100 50 0.9% 50 ml @ 100 mls/hr IV Q8H [facility] Rx#:[id number] Oral 480 Output: Urine Catheter Amount 200 Other: Stool Size Small Small Stool Color Brown Green Yellow Green Stool Consistency Soft Soft Formed # Bowel Movements 1 1 Head Head exam: Present atraumatic, normal inspection and normocephalic Eye Eye exam: Present periorbital tenderness and PERRL Pupils: Present normal accommodation ENT ENT exam: Present mucous membranes moist and normal oropharynx Neck Neck exam: Present normal inspection Respiratory Respiratory exam: Present normal respiratory exam and CTAB Cardiovascular Cardiovascular exam: Present normal rate and rhythm, JVD, RRR, +S1 and +S2 GI/Abdominal GI/Abdominal exam: Present normal bowel sounds and tenderness (Moderate tenderness in left lower quadrant and suprapubic area); Absent distended Extremities Exam Extremities exam: Present normal inspection and neurovascular intact Neurological Exam Neurological exam: Present alert, normal gait and oriented X3 Psychiatric Psychiatric exam: Present normal affect and normal mood A/P Assessment and plan (1) Diverticulitis of intestine with abscess: Status: Acute (2) Acute appendicitis: Status: Acute Qualifiers: Acute appendicitis type: with localized peritonitis Appendicitis abscess presence: with abscess Appendicitis gangrene presence: without gangrene Appendicitis perforation presence: unspecified whether perforation present Qualified Code(s): K35.33 - Acute appendicitis with perforation, localized peritonitis, and gangrene, with abscess (3) Atrial fibrillation with rapid ventricular response: Status: Acute Plan Continue antibiotics Continue n.p.o. except for ice chips Bowel prep Scheduled for sigmoid colectomy with colostomy on Monday Time Spent With Patient Time: Total time spent is greater than 50% in coordination of care (as documented) at patient's floor/unit and/or counseling patient:
[2022-07-11] MEDS ORDERED: METOCLOPRAMIDE 10 MG/2 ML VIAL ONE (21:24)
[2022-07-12] MEDS: SENNOSIDES 1 TABLET PO SCH ×2 (00:30→20:55)
[2022-07-12] MEDS: ACETAMINOPHEN 1,000 MG/100 ML BAG IV SCH ×4 (04:27→22:20)
[2022-07-12] MEDS: MEROPENEM 2 GM in 0.9 % SODIUM CHLORIDE 50 ML IV SCH ×2 (05:50→14:12)
[2022-07-12] MEDS: 0.9 % SODIUM CHLORIDE 10 ML SYRINGE IV SCH ×3 (05:52→20:56)
[2022-07-12 07:08] LABS: Basophils # (Auto) 0.05 K/mcL (0.00-0.30); Basophils % (Auto) 0.8 % (0.0-2.0); Eosinophils # (Auto) 0.26 K/mcL (0.00-0.70); Eosinophils % (Auto) 4.2 % (0.0-7.0); Hematocrit 39.3 % (40.1-51.0); Hemoglobin 12.9 g/dL (13.7-17.5); Lymphocytes % (Auto) 11.2 % (15.5-49.0); Mean Cell Volume 88.9 fL (80.0-100.0); Mean Corpuscular HGB Conc 32.8 g/dL (31.0-36.0); Mean Platelet Volume 10.6 fL (8.8-12.5); Monocytes # (Auto) 0.45 K/mcL (0.10-0.90); Monocytes % (Auto) 7.2 % (1.0-12.0); Neutrophils % (Auto) 76.1 % (38.0-78.0); Platelet Count 212 K/mcL (140-440); RBC 4.42 M/mcL (4.63-6.08); Red Cell Distribution Width 12.8 % (11.5-14.5); WBC 6.2 K/mcL (4.5-11.0)
[2022-07-12] MEDS: PANTOPRAZOLE 40 MG VIAL IV SCH ×2 (07:14→17:08)
[2022-07-12 08:04] LABS: ALT/SGPT 8 U/L (<40); AST/SGOT 13 U/L (<40); Albumin 3.1 gm/dL (3.2-5.2); Albumin/Globulin Ratio 1.1 (1.0-2.3); Alkaline Phosphatase 51 U/L (39-117); Bilirubin,Direct < 0.2 mg/dL (0-0.3); Bilirubin,Total 0.3 mg/dL (0.1-1.0); Blood Urea Nitrogen 9 mg/dL (8-23); Calcium 8.4 mg/dL (8.6-10.4); Carbon Dioxide 22 mmol/L (22-30); Chloride 100 mmol/L (96-108); Globulin 2.9 gm/dL (2.2-3.7); Glomerular Filtration Rate 101; Glucose 68 mg/dL (70-105); Lactate Dehydrogenase 141 U/L (135-225); Phosphorous 2.4 mg/dL (2.5-4.5); Triglycerides 105 mg/dL (<150); Uric Acid 5.8 mg/dL (2.5-8.0)
[2022-07-12] MEDS ORDERED: PEG 3350/NA SULF,BICARB,CL/KCL 4,000 ML ORAL.SOL PO ONE ×2 (11:05→11:07)
[2022-07-12] MEDS: POTASSIUM PHOSPHATE 40 MEQ in DEXTROSE 5% IN WATER 500 ML IV SCH (11:48)
[2022-07-12] MEDS: ONDANSETRON 4 MG/2 ML VIAL IV PRN (11:52)
--- NOTE | 2022-07-12 16:28 | General Surgery Progress Note ---
SUBJECTIVE Subjective Patient information: Note initiated : 07/12/22 at 4:25 pm Service Date, if different from initiated Date: [] Patient: Elkin Boucher 61 y/o M admitted on 07/10/22 for diverticulitis. Chief Complaint: [] Principal diagnosis: Diverticulitis with pelvic abscess;Acute appendicitis Interval history: Patient states that he feels better. He has less pain and he has been afebrile. He made decision yesterday to proceed with surgical treatment and he has been counseled for exploratory laparotomy with possible sigmoid resection. He is tolerated his bowel prep well and has not had any exacerbation of pain. His white blood count is 6.2, hemoglobin 12.9, hematocrit 33, potassium 3.6, BUN 9, creatinine 0.7, phosphorus 2.4. Constitutional Vitals: Vital Signs Temp Pulse Resp BP Pulse Ox O2 Del Method 99.8 F H 69 12 110/74 96 Room Air 07/12/22 12:00 07/12/22 12:00 07/12/22 08:00 07/12/22 12:00 07/12/22 12:00 07/12/22 12:00 Period Temp Pulse Resp BP Sys/Silva Pulse Ox O2 Del Method O2 Flow Rate Last 24 Hr 97.5 F-99.8 F 66-73 12-17 104-129/69-76 95-99 Room Air-Room Air Intake and Output 07/12/22 07/12/22 07/12/22 03:59 11:59 19:59 Intake Total 350 250 50 Output Total 300 Balance 350 -50 50 Weight 208 lb 8 oz 208 lb 8 oz Patient Weight 07/13/22 03:59 Weight 208 lb 8 oz Intake & Output: Intake & Output 07/12/22 07/12/22 07/12/22 03:59 11:59 19:59 Intake Total 350 250 50 Output Total 300 Balance 350 -50 50 Weight 208 lb 8 oz 208 lb 8 oz Intake: IV 150 250 50 Merrem 2 gm In Sodium Chloride 50 50 50 0.9% 50 ml @ 100 mls/hr IV Q8H [facility] Rx#:[id number] Oral 200 Output: Void Amount 300 Other: Stool Size Small Moderate Stool Color Green Green Stool Consistency Liquid Watery Loose # Voids 1 # Bowel Movements 1 1 Head Head exam: Present atraumatic, normal inspection and normocephalic Eye Eye exam: Present periorbital tenderness and PERRL Pupils: Present normal accommodation ENT ENT exam: Present mucous membranes moist and normal oropharynx Neck Neck exam: Present normal inspection Respiratory Respiratory exam: Present normal respiratory exam and CTAB Cardiovascular Cardiovascular exam: Present normal rate and rhythm, JVD, RRR, +S1 and +S2 GI/Abdominal GI/Abdominal exam: Present normal bowel sounds and tenderness (Moderate tenderness in left lower quadrant and suprapubic area); Absent distended Extremities Exam Extremities exam: Present normal inspection and neurovascular intact Neurological Exam Neurological exam: Present alert, normal gait and oriented X3 Psychiatric Psychiatric exam: Present normal affect and normal mood A/P Assessment and plan (1) Diverticulitis of intestine with abscess: Status: Acute (2) Acute appendicitis: Status: Acute Qualifiers: Acute appendicitis type: with localized peritonitis Appendicitis abscess presence: with abscess Appendicitis gangrene presence: without gangrene Appendicitis perforation presence: unspecified whether perforation present Qualified Code(s): K35.33 - Acute appendicitis with perforation, localized peritonitis, and gangrene, with abscess Plan Complete bowel prep tonight N.p.o. after midnight Consent for exploratory laparotomy with possible sigmoid resection, possible colostomy Sepsis Sepsis Identified: No Time Spent With Patient Time: Total time spent is greater than 50% in coordination of care (as documented) at patient's floor/unit and/or counseling patient:
--- NOTE | 2022-07-12 17:22 | General Surg History&Physical ---
HPI History of Present Illness Patient information: Note initiated : 07/12/22 at 5:19 pm Service Date, if different from initiated Date: [07/10/2022] Patient: Elkin Boucher a 61 y/o M admitted on 07/10/22 for diverticulitis. Chief Complaint: [] Chief complaint: Exacerbation of diverticulitis; acute appendicitis History of present illness: Mr. Boucher is a 61 year old M with clinical exacerbation of diverticulitis. The patient developed diverticulitis initially on 27 April 2022. He presented to the emergency room with acute abdominal pain and free air. He was admitted and treated nonoperatively with resolution of the free air and improvement and the diverticulitis. Follow-up CT 2 weeks postdischarge showed marked improvement in the sigmoid diverticulitis but he had multiple small abscesses. He was continued on antibiotics and a follow-up CT performed on 14 June revealed reduction in the diverticulitis with 2 small residual fluid-filled cavities thought to represent abscesses. He was given another course of antibiotics and was seen in the office on 316 after completion of antibiotics for [address] of the abdomen performed on 30 June 2022 showed continued improvement in the sigmoid diverticulitis with a 2.8 cm fluid collection that was thought to represent an abscess. The patient was afebrile and his white count was normal. At that time he felt much better. We discussed whether or not he should continue on antibiotics or consider surgery but because of the possibility of a stoma he wished to try another course of antibiotics. Since he had received a long course of Cipro it was elected to treat him with Bactrim DS. He states that on the day of admission he has had a 2-day history of increasing lower abdominal pain with nausea and general malaise. Repeat CT showed thickening of the appendix with the tip of the appendix associated with an abscess measuring 5.8 cm. There was also stranding of the fat around the cecum. The diverticulitis showed significant improvement but there was thickening of the wall of the sigmoid extending into the upper rectum. Patient is admitted for more aggressive antibiotic treatment. Constitutional Constitutional: Present chills, fatigue, lethargy, malaise and weakness EENT Eyes: Present as per HPI Ears: Present as per HPI Nose, mouth and throat: Present as per HPI Cardiovascular Cardiovascular: Absent dyspnea on exertion, irregular heart rhythm, leg edema or rapid heart rate Respiratory Respiratory: Absent cough, dyspnea, dyspnea on exertion or chest congestion Gastrointestinal Gastrointestinal: Present abdominal pain, change in bowel habits, change in stool character, early satiety and nausea; Absent vomiting Genitourinary Genitourinary: change in urinary stream and difficulty urinating Musculoskeletal Musculoskeletal: Absent myalgias or stiffness Neurological Neurological: Present as per HPI Psychiatric Psychiatric: Present as per HPI Hematologic/Lymphatic Hematologic/Lymphatic: Absent easy bleeding, easy bruising or lymphadenopathy Allergic/Immunologic Allergic/Immunologic: Absent tongue swelling, uticaria, wheezing or lip swelling PFSH PFSH All Active Problems (Updated 07/10/22 @ 14:00 by Husam Delong MD) Acute appendicitis (Acute) Atrial fibrillation with rapid ventricular response (Acute) Diverticulitis of intestine with abscess (Acute) Perforated gastric ulcer (Acute) Acute diverticulitis of intestine (Acute) Erectile dysfunction (Acute) Screening for colon cancer (Acute) Genital herpes in men (Chronic) Hepatitis (Chronic) Gout (Chronic) Arthritis (Chronic) Upper respiratory tract infection (Acute) Medical History Arthritis Erectile dysfunction Genital herpes in men Gout last flare 05/2017 Hepatitis Screening for colon cancer Surgical History History of colonoscopy 2010, repeat in 10 years Family History Grandmother Diabetes Maternal/Paternal Grandfather Diabetes Maternal/Paternal Social History household members: spouse marital status: smoking status: Never smoker alcohol intake frequency: does not drink substance use type: does not use and former substance user MEDS/ALLERGIES Home Medications and Allergies Home Medications Medication Instructions Recorded Confirmed Type No Known Home Meds 07/10/22 07/10/22 History Allergies Allergy/AdvReac Type Severity Reaction Status Date / Time No Known Drug Allergies Allergy Verified 07/07/22 10:30 enviromental Allergy Unknown Unknown Uncoded 07/07/22 10:30 Physical Examination Vital Signs Vital signs: Temp Pulse Resp BP Pulse Ox O2 Del Method 99.8 F H 69 12 110/74 96 Room Air 07/12/22 12:00 07/12/22 12:00 07/12/22 08:00 07/12/22 12:00 07/12/22 12:00 07/12/22 12:00 Results Labs 07/12/22 05:05 07/12/22 05:05 Labs: Abnormal lab results 07/12/22 07/12/22 Range/Units 05:05 05:05 RBC 4.42 L (4.63-6.08) M/mcL Hgb 12.9 L (13.7-17.5) g/dL Hct 39.3 L (40.1-51.0) % Lymph % (Auto) 11.2 L (15.5-49.0) % Lymph # (Auto) 0.70 L (1.50-4.80) K/mcL Glucose 68 L (70-105) mg/dL Calcium 8.4 L (8.6-10.4) mg/dL Phosphorus 2.4 L (2.5-4.5) mg/dL Albumin 3.1 L (3.2-5.2) gm/dL Diabetes panel 07/12/22 Range/Units 05:05 Sodium 134 (133-145) mmol/L Potassium 3.6 (3.3-5.1) mmol/L Chloride 100 (96-108) mmol/L Carbon Dioxide 22 (22-30) mmol/L BUN 9 (8-23) mg/dL Creatinine 0.7 (0.7-1.2) mg/dL Glucose 68 L (70-105) mg/dL Calcium 8.4 L (8.6-10.4) mg/dL AST 13 (<40) U/L ALT 8 (<40) U/L Alkaline Phosphatase 51 (39-117) U/L Total Protein 6.0 (5.9-8.4) gm/dL Albumin 3.1 L (3.2-5.2) gm/dL Triglycerides 105 (<150) mg/dL Calcium panel 07/12/22 Range/Units 05:05 Calcium 8.4 L (8.6-10.4) mg/dL Phosphorus 2.4 L (2.5-4.5) mg/dL Albumin 3.1 L (3.2-5.2) gm/dL Pituitary panel 07/12/22 Range/Units 05:05 Sodium 134 (133-145) mmol/L Potassium 3.6 (3.3-5.1) mmol/L Chloride 100 (96-108) mmol/L Carbon Dioxide 22 (22-30) mmol/L BUN 9 (8-23) mg/dL Creatinine 0.7 (0.7-1.2) mg/dL Glucose 68 L (70-105) mg/dL Calcium 8.4 L (8.6-10.4) mg/dL Adrenal panel 07/12/22 Range/Units 05:05 Sodium 134 (133-145) mmol/L Potassium 3.6 (3.3-5.1) mmol/L Chloride 100 (96-108) mmol/L Carbon Dioxide 22 (22-30) mmol/L BUN 9 (8-23) mg/dL Creatinine 0.7 (0.7-1.2) mg/dL Glucose 68 L (70-105) mg/dL Calcium 8.4 L (8.6-10.4) mg/dL Total Bilirubin 0.3 (0.1-1.0) mg/dL AST 13 (<40) U/L ALT 8 (<40) U/L Alkaline Phosphatase 51 (39-117) U/L Total Protein 6.0 (5.9-8.4) gm/dL Albumin 3.1 L (3.2-5.2) gm/dL All other labs normal. A/P Assessment and plan (1) Diverticulitis of intestine with abscess: Status: Acute (2) Acute appendicitis: Status: Acute Qualifiers: Acute appendicitis type: with localized peritonitis Appendicitis abscess presence: with abscess Appendicitis gangrene presence: without gangrene Appendicitis perforation presence: unspecified whether perforation present Qualified Code(s): K35.33 - Acute appendicitis with perforation, localized peritonitis, and gangrene, with abscess Plan Inpatient admission Start Zosyn 3.375 g IV every 6 IV hydration Discussed with patient the probability of needing laparotomy with possible sigmoid resection and colostomy. Sepsis Sepsis Identified: No Time Spent With Patient Time: Total time spent is greater than 50% in coordination of care (as documented) at patient's floor/unit and/or counseling patient:
[2022-07-12] MEDS: 0.9 % SODIUM CHLORIDE 1,000 ML IV SCH (18:57)
[2022-07-12] MEDS: MEROPENEM 2 GM in 0.9 % SODIUM CHLORIDE 100 ML IV SCH (22:55)
[2022-07-13] MEDS: ACETAMINOPHEN 1,000 MG/100 ML BAG IV SCH ×4 (04:03→20:09)
[2022-07-13] MEDS: 0.9 % SODIUM CHLORIDE 1,000 ML IV SCH ×4 (04:03→20:10)
[2022-07-13] MEDS: MEROPENEM 2 GM in 0.9 % SODIUM CHLORIDE 100 ML IV SCH ×3 (05:15→21:56)
[2022-07-13] MEDS: 0.9 % SODIUM CHLORIDE 10 ML SYRINGE IV SCH ×3 (05:47→21:23)
[2022-07-13] MEDS: POTASSIUM PHOSPHATE 40 MEQ in DEXTROSE 5% IN WATER 500 ML IV SCH (06:19)
[2022-07-13] MEDS ORDERED: IPRATROPIUM/ALBUTEROL 3 ML AMPUL.NEB NEB PRN ×2 (07:00→13:02)
[2022-07-13] MEDS ORDERED: SCOPOLAMINE 1 PATCH PATCH TOPICAL PRN (07:00)
[2022-07-13 07:13] LABS: Basophils # (Auto) 0.06 K/mcL (0.00-0.30); Basophils % (Auto) 1.3 % (0.0-2.0); Eosinophils # (Auto) 0.33 K/mcL (0.00-0.70); Eosinophils % (Auto) 7.3 % (0.0-7.0); Hematocrit 38.5 % (40.1-51.0); Hemoglobin 12.7 g/dL (13.7-17.5); Lymphocytes # (Auto) 1.33 K/mcL (1.50-4.80); Lymphocytes % (Auto) 29.2 % (15.5-49.0); Mean Cell Volume 87.9 fL (80.0-100.0); Mean Platelet Volume 10.5 fL (8.8-12.5); Monocytes # (Auto) 0.59 K/mcL (0.10-0.90); Neutrophils % (Auto) 48.8 % (38.0-78.0); Platelet Count 234 K/mcL (140-440); RBC 4.38 M/mcL (4.63-6.08); Red Cell Distribution Width 12.7 % (11.5-14.5); WBC 4.6 K/mcL (4.5-11.0)
[2022-07-13] MEDS: PANTOPRAZOLE 40 MG VIAL IV SCH ×2 (07:28→17:43)
[2022-07-13 07:59] LABS: ALT/SGPT 10 U/L (<40); AST/SGOT 15 U/L (<40); Albumin/Globulin Ratio 1.1 (1.0-2.3); Alkaline Phosphatase 43 U/L (39-117); Bilirubin,Direct < 0.2 mg/dL (0-0.3); Bilirubin,Total 0.3 mg/dL (0.1-1.0); Blood Urea Nitrogen 7 mg/dL (8-23); Calcium 8.2 mg/dL (8.6-10.4); Carbon Dioxide 23 mmol/L (22-30); Chloride 102 mmol/L (96-108); Globulin 2.7 gm/dL (2.2-3.7); Glomerular Filtration Rate 107; Glucose 70 mg/dL (70-105); Lactate Dehydrogenase 121 U/L (135-225); Phosphorous 2.6 mg/dL (2.5-4.5); Triglycerides 131 mg/dL (<150); Uric Acid 6.8 mg/dL (2.5-8.0)
[2022-07-13] MEDS ORDERED: ROCURONIUM 10 MG/ML ML IV ONE (10:00)
[2022-07-13] MEDS ORDERED: EPINEPHrine 1 MG/ML VIAL ONE (10:00)
[2022-07-13] MEDS ORDERED: HYDROmorphone 1 MG/ML SYRINGE ONE (10:00)
[2022-07-13] MEDS ORDERED: ROPIVACAINE HCL/PF 30 ML VIAL IJ ONE (10:00)
[2022-07-13] MEDS ORDERED: SUGAMMADEX SODIUM 200 MG/2 ML VIAL IV ONE (10:00)
[2022-07-13] MEDS ORDERED: MIDAZOLAM 2 MG/2 ML VIAL ONE (10:00)
[2022-07-13] MEDS ORDERED: MAGNESIUM SULFATE 2 GM/50 ML BAG IV ONE (10:00)
[2022-07-13] MEDS ORDERED: LIDOCAINE 2% 20 ML VIAL ONE (10:00)
[2022-07-13] MEDS ORDERED: fentaNYL 100 MCG/2 ML VIAL IV ONE ×2 (10:00→13:04)
[2022-07-13] MEDS ORDERED: LIDOCAINE HCL/PF 100 MG/5 ML SYRINGE IV ONE (10:00)
[2022-07-13] MEDS ORDERED: KETAMINE 50 MG/ML Syringe (ANEST) IV ONE (10:00)
[2022-07-13] MEDS ORDERED: DEXAMETHASONE 10 MG/ML VIAL ONE (10:00)
[2022-07-13] MEDS ORDERED: GLYCOPYRROLATE 0.2 MG/ML VIAL IV ONE (10:00)
[2022-07-13] MEDS ORDERED: PROPOFOL 200 MG/20 ML VIAL IV ONE (10:00)
[2022-07-13] MEDS ORDERED: PHENYLephrine 1 MG/10 ML SYRINGE (ANEST) ONE (10:00)
[2022-07-13] MEDS ORDERED: ONDANSETRON 4 MG/2 ML VIAL ONE (10:00)
--- NOTE | 2022-07-13 12:17 | Brief Operative Note ---
Brief Operative Note Date of procedure: 07/13/22 Pre-op diagnosis: chronic diverticulitis;acute appendicitis Post-op diagnosis: other (acute diverticulitis with abscess; acute appendicitis) Procedure: sigmoid colectomy with colostomy;appendecitis;drainage of pelvic abscess Grafts/Implants: No (tamika drain x1) Anesthesia: GETA Findings: acute and chronic severe diverticulitis;abscess extending into perirectal space;acute appendicitis,(secondary) Complications: none Surgeon: Roxanne Borrego Estimated blood loss (cc): 100 Specimens Removed/Pathology: other (sigmoid colon segment;appendix) Condition: stable
[2022-07-13] MEDS ORDERED: ONDANSETRON 4 MG/2 ML VIAL IV PRN (13:02)
[2022-07-13] MEDS ORDERED: PROMETHAZINE 25 MG/ML VIAL IV PRN (13:02)
[2022-07-13] MEDS: fentaNYL 100 MCG/2 ML VIAL IV PRN ×4 (13:03→13:19)
[2022-07-13] MEDS: morphine 2 MG/ML VIAL IV PRN ×2 (13:27→13:34)
[2022-07-13] MEDS: HYDROmorphone 1 MG/ML SYRINGE IV PRN ×6 (13:57→23:48)
[2022-07-13] MEDS: ONDANSETRON 4 MG/2 ML VIAL IV PRN (14:09)
[2022-07-13] MEDS: METOCLOPRAMIDE 10 MG/2 ML VIAL IV SCH ×2 (17:43→23:48)
[2022-07-13] MEDS: SENNOSIDES 1 TABLET PO SCH (20:39)
[2022-07-14] MEDS: 0.9 % SODIUM CHLORIDE 1,000 ML IV SCH ×4 (00:49→20:04)
[2022-07-14] MEDS: ACETAMINOPHEN 1,000 MG/100 ML BAG IV SCH ×4 (02:26→20:02)
[2022-07-14] MEDS: HYDROmorphone 1 MG/ML SYRINGE IV PRN ×9 (02:26→22:07)
[2022-07-14] MEDS: MEROPENEM 2 GM in 0.9 % SODIUM CHLORIDE 100 ML IV SCH ×3 (05:05→22:08)
[2022-07-14] MEDS: METOCLOPRAMIDE 10 MG/2 ML VIAL IV SCH ×3 (05:05→17:46)
[2022-07-14] MEDS: 0.9 % SODIUM CHLORIDE 10 ML SYRINGE IV SCH ×2 (05:06→14:04)
[2022-07-14 06:54] LABS: ALT/SGPT 10 U/L (<40); AST/SGOT 19 U/L (<40); Albumin/Globulin Ratio 1.2 (1.0-2.3); Alkaline Phosphatase 44 U/L (39-117); Bilirubin,Direct < 0.2 mg/dL (0-0.3); Bilirubin,Total 0.2 mg/dL (0.1-1.0); Blood Urea Nitrogen 7 mg/dL (8-23); Carbon Dioxide 24 mmol/L (22-30); Chloride 100 mmol/L (96-108); Globulin 2.6 gm/dL (2.2-3.7); Glomerular Filtration Rate 101; Glucose 87 mg/dL (70-105); Lactate Dehydrogenase 147 U/L (135-225); Phosphorous 2.3 mg/dL (2.5-4.5); Triglycerides 118 mg/dL (<150); Uric Acid 7.7 mg/dL (2.5-8.0)
[2022-07-14] MEDS: PANTOPRAZOLE 40 MG VIAL IV SCH ×2 (07:39→17:09)
[2022-07-14] MEDS ORDERED: BENZOCAINE 20% 1 SPRAY EACH TOPICAL PRN (11:02)
[2022-07-14 15:31] LABS: Basophils # (Auto) 0.02 K/mcL (0.00-0.30); Basophils % (Auto) 0.2 % (0.0-2.0); Eosinophils # (Auto) 0.07 K/mcL (0.00-0.70); Eosinophils % (Auto) 0.7 % (0.0-7.0); Hematocrit 38.3 % (40.1-51.0); Hemoglobin 12.6 g/dL (13.7-17.5); Lymphocytes % (Auto) 11.6 % (15.5-49.0); Mean Cell Volume 90.3 fL (80.0-100.0); Mean Corpuscular HGB Conc 32.9 g/dL (31.0-36.0); Mean Platelet Volume 10.2 fL (8.8-12.5); Monocytes # (Auto) 0.84 K/mcL (0.10-0.90); Monocytes % (Auto) 8.9 % (1.0-12.0); Neutrophils % (Auto) 78.1 % (38.0-78.0); Platelet Count 246 K/mcL (140-440); RBC 4.24 M/mcL (4.63-6.08); WBC 9.5 K/mcL (4.5-11.0)
--- NOTE | 2022-07-14 17:33 | General Surgery Progress Note ---
SUBJECTIVE Subjective Patient information: Note initiated : 07/14/22 at 5:29 pm Service Date, if different from initiated Date: [] Patient: Elkin Boucher 61 y/o M admitted on 07/10/22 for diverticulitis. Chief Complaint: [] Principal diagnosis: Diverticulitis with pelvic abscess;Acute appendicitis Interval history: Patient is clinically stable. Vital signs are stable. His pain is improved over the past 24 hours. He denies nausea. Labs including CMP and CBC are normal with white count of 9.5. Patient has not had any output through his stoma. He denies nausea. Constitutional Vitals: Vital Signs Temp Pulse Resp BP Pulse Ox O2 Del Method O2 Flow Rate 98.2 F 69 16 148/75 94 Room Air 0 07/14/22 16:29 07/14/22 16:00 07/14/22 16:00 07/14/22 16:00 07/14/22 16:00 07/14/22 16:00 07/14/22 11:57 Period Temp Pulse Resp BP Sys/Silva Pulse Ox O2 Del Method O2 Flow Rate Last 24 Hr 96.8 F-98.2 F 57-69 13-18 116-148/62-75 94-100 Nasal Cannula- Room Air 0-4 Intake and Output 07/14/22 07/14/22 07/14/22 03:59 11:59 19:59 Intake Total 1400 2189.0909 200 Output Total 1460 515 Balance -60 2189.0909 -315 Weight 210 lb 8 oz Intake & Output: Intake & Output 07/14/22 07/14/22 07/14/22 03:59 11:59 19:59 Intake Total 1400 2189.0909 200 Output Total 1460 515 Balance -60 2189.0909 -315 Weight 210 lb 8 oz Intake: IV 1300 1709.0909 200 Sodium Chloride 0.9% 1,000 ml @ 1000 1000 125 mls/hr IV .Q8H [facility] Rx#: [id number] Merrem 2 gm In Sodium Chloride 100 100 100 0.9% 100 ml @ 100 mls/hr IV Q8H [facility] Rx#:[id number] Potassium Phosphate 40 Meq In 509.0909 Dextrose 5% in Water 500 ml @ 127.273 mls/hr IV Q4H [facility] Rx#: [id number] Oral 100 480 Output: Gastric Drainage 130 100 Right Nare NG/OG 130 100 Drainage 30 15 Right Lower Abdomen CORDELIA Drain 30 15 Urine Catheter Amount 1300 400 Stool 0 Other: Urine Appearance Clear Clear Clear Uretheral (Jovel) Clear Clear Urine Color Yellow Bright Yellow Yellow Uretheral (Jovel) Yellow Bright Yellow Urine Odor Normal Normal Uretheral (Jovel) Normal Head Head exam: Present atraumatic, normal inspection and normocephalic Eye Eye exam: Present periorbital tenderness and PERRL Pupils: Present normal accommodation ENT ENT exam: Present mucous membranes moist and normal oropharynx Neck Neck exam: Present normal inspection Respiratory Respiratory exam: Present normal respiratory exam and CTAB Cardiovascular Cardiovascular exam: Present normal rate and rhythm, JVD, RRR, +S1 and +S2 GI/Abdominal GI/Abdominal exam: Present diminished bowel sounds and tenderness ( Moderate tenderness of the incision); Absent distended Additional comments: Stoma is pink but without gas or fecal matter Extremities Exam Extremities exam: Present normal inspection and neurovascular intact Neurological Exam Neurological exam: Present alert, normal gait and oriented X3 Psychiatric Psychiatric exam: Present normal affect and normal mood A/P Assessment and plan (1) Diverticulitis of intestine with abscess: Status: Acute (2) Acute appendicitis: Status: Acute Qualifiers: Acute appendicitis type: with localized peritonitis Appendicitis abscess presence: with abscess Appendicitis gangrene presence: without gangrene Appendicitis perforation presence: unspecified whether perforation present Qualified Code(s): K35.33 - Acute appendicitis with perforation, localized peritonitis, and gangrene, with abscess (3) Colostomy status: Status: Acute Plan Continue antibiotics Continue nasogastric suction Time Spent With Patient Time: Total time spent is greater than 50% in coordination of care (as documented) at patient's floor/unit and/or counseling patient:
[2022-07-14] MEDS: SENNOSIDES 1 TABLET PO SCH (20:01)
[2022-07-15] MEDS: 0.9 % SODIUM CHLORIDE 10 ML SYRINGE IV SCH ×4 (00:40→22:30)
[2022-07-15] MEDS: HYDROmorphone 1 MG/ML SYRINGE IV PRN ×7 (00:43→19:54)
[2022-07-15] MEDS: METOCLOPRAMIDE 10 MG/2 ML VIAL IV SCH ×4 (00:48→18:31)
[2022-07-15] MEDS: ACETAMINOPHEN 1,000 MG/100 ML BAG IV SCH ×3 (03:34→17:06)
[2022-07-15] MEDS: 0.9 % SODIUM CHLORIDE 1,000 ML IV SCH ×4 (03:36→18:35)
[2022-07-15] MEDS: MEROPENEM 2 GM in 0.9 % SODIUM CHLORIDE 100 ML IV SCH ×3 (05:19→22:26)
[2022-07-15] MEDS ORDERED: BENZOCAINE 20% 1 SPRAY EACH TOPICAL PRN (06:46)
[2022-07-15 07:49] LABS: ALT/SGPT 10 U/L (<40); AST/SGOT 21 U/L (<40); Albumin 2.9 gm/dL (3.2-5.2); Alkaline Phosphatase 49 U/L (39-117); Bilirubin,Direct < 0.2 mg/dL (0-0.3); Bilirubin,Total 0.2 mg/dL (0.1-1.0); Blood Urea Nitrogen 6 mg/dL (8-23); Calcium 8.3 mg/dL (8.6-10.4); Carbon Dioxide 25 mmol/L (22-30); Chloride 100 mmol/L (96-108); Globulin 2.8 gm/dL (2.2-3.7); Glomerular Filtration Rate 107; Glucose 80 mg/dL (70-105); Lactate Dehydrogenase 178 U/L (135-225); Phosphorous 1.4 mg/dL (2.5-4.5); Triglycerides 142 mg/dL (<150); Uric Acid 7.2 mg/dL (2.5-8.0)
[2022-07-15] MEDS: PANTOPRAZOLE 40 MG VIAL IV SCH ×2 (08:01→17:07)
[2022-07-15] MEDS: POTASSIUM PHOSPHATE 40 MEQ in DEXTROSE 5% IN WATER 500 ML IV SCH ×2 (09:04→18:35)
--- NOTE | 2022-07-15 09:46 | XRay Report ---
CLINICAL INFORMATION: f/u of postop ileus COMPARISON: None. FINDINGS: NG tip overlies the gastric antrum. Small large bowel are slightly dilated compatible with mild postoperative ileus.. There is no free air, soft tissue mass, organomegaly or pathologic calcification. IMPRESSION: Mild postoperative ileus. Interpreted and Authenticated by: Jameson Frias 07/15/22
--- NOTE | 2022-07-15 14:38 | General Surgery Progress Note ---
SUBJECTIVE Subjective Patient information: Note initiated : 07/15/22 at 2:33 pm Service Date, if different from initiated Date: [] Patient: Elkin Boucher 61 y/o M admitted on 07/10/22 for diverticulitis. Chief Complaint: [] Principal diagnosis: Diverticulitis with pelvic abscess;Acute appendicitis Interval history: Patient is doing well. He denies nausea. He has good control of pain. He has not had output via his stoma. Plain films shows gas throughout his colon. Constitutional Vitals: Vital Signs Temp Pulse Resp BP Pulse Ox O2 Del Method O2 Flow Rate 98.0 F 72 16 136/73 96 Room Air 0 07/15/22 11:11 07/15/22 11:11 07/15/22 11:11 07/15/22 11:11 07/15/22 11:11 07/15/22 11:11 07/15/22 11:11 Period Temp Pulse Resp BP Sys/Silva Pulse Ox O2 Del Method O2 Flow Rate Last 24 Hr 97.9 F-98.2 F 69-80 16-18 136-156/73-83 92-98 Room Air-Room Air 0-0 Intake and Output 07/15/22 07/15/22 07/15/22 03:59 11:59 19:59 Intake Total 200 2020 Output Total 20 765 Balance 180 1255 Weight 211 lb 11.2 oz 211 lb 11.2 oz Patient Weight 07/16/22 03:59 Weight 211 lb 11.2 oz Intake & Output: Intake & Output 07/15/22 07/15/22 07/15/22 03:59 11:59 19:59 Intake Total 200 2020 Output Total 20 765 Balance 180 1255 Weight 211 lb 11.2 oz 211 lb 11.2 oz Intake: IV 200 1300 Sodium Chloride 0.9% 1,000 ml @ 1000 125 mls/hr IV .Q8H [facility] Rx#: [id number] Merrem 2 gm In Sodium Chloride 100 100 0.9% 100 ml @ 100 mls/hr IV Q8H [facility] Rx#:[id number] Oral 720 Output: Gastric Drainage 100 Right Nare NG/OG 100 Drainage 20 Right Lower Abdomen CORDELIA Drain 20 Drainage 15 Right Lower Abdomen CORDELIA Drain 15 Urine Catheter Amount 600 Stool 50 Other: Urine Appearance Clear Uretheral (Jovel) Clear Clear Clear Urine Color Bright Yellow Uretheral (Jovel) Yellow Bright Yellow Bright Yellow Urine Odor Normal Uretheral (Jovel) Normal Normal Stool Color Dark Red Blood Head Head exam: Present atraumatic, normal inspection and normocephalic Eye Eye exam: Present periorbital tenderness and PERRL Pupils: Present normal accommodation ENT ENT exam: Present mucous membranes moist and normal oropharynx Neck Neck exam: Present normal inspection Respiratory Respiratory exam: Present normal respiratory exam and CTAB Cardiovascular Cardiovascular exam: Present normal rate and rhythm, JVD, RRR, +S1 and +S2 GI/Abdominal GI/Abdominal exam: Present diminished bowel sounds and tenderness ( Moderate tenderness of the incision); Absent distended Additional comments: Stoma is pink but without gas or fecal matter Extremities Exam Extremities exam: Present normal inspection and neurovascular intact Neurological Exam Neurological exam: Present alert, normal gait and oriented X3 Psychiatric Psychiatric exam: Present normal affect and normal mood A/P Assessment and plan (1) Colostomy status: Status: Acute (2) Acute appendicitis: Status: Acute Qualifiers: Acute appendicitis type: with localized peritonitis Appendicitis abscess presence: with abscess Appendicitis gangrene presence: without gangrene Appendicitis perforation presence: unspecified whether perforation present Qu alified Code(s): K35.33 - Acute appendicitis with perforation, localized peritonitis, and gangrene, with abscess (3) Diverticulitis of intestine with abscess: Status: Acute Plan Discontinue nasogastric tube Full liquid diet Neutra-Phos twice daily Follow-up IP in the morning Advance diet in a.m. if possible Possible discharge on oral antibiotics x2 weeks postdischarge Time Spent With Patient Time: Total time spent is greater than 50% in coordination of care (as documented) at patient's floor/unit and/or counseling patient:
[2022-07-15] MEDS: oxyCODONE IR 5 MG TABLET PO PRN ×2 (17:06→21:03)
[2022-07-15] MEDS: NEUTRA PHOS 1 PACKET PO SCH (21:02)
[2022-07-15] MEDS: SENNOSIDES 1 TABLET PO SCH (21:02)
[2022-07-15] MEDS: POLYETHYLENE GLYCOL 3350 17 GM PACKET PO SCH (21:02)
[2022-07-16] MEDS: ACETAMINOPHEN 1,000 MG/100 ML BAG IV SCH ×5 (00:07→23:57)
[2022-07-16] MEDS: METOCLOPRAMIDE 10 MG/2 ML VIAL IV SCH ×5 (00:07→23:57)
[2022-07-16] MEDS: oxyCODONE IR 5 MG TABLET PO PRN ×6 (01:12→20:56)
[2022-07-16] MEDS: 0.9 % SODIUM CHLORIDE 1,000 ML IV SCH ×4 (04:04→20:58)
[2022-07-16] MEDS: 0.9 % SODIUM CHLORIDE 10 ML SYRINGE IV SCH ×3 (04:57→20:57)
[2022-07-16] MEDS: MEROPENEM 2 GM in 0.9 % SODIUM CHLORIDE 100 ML IV SCH ×3 (05:05→20:56)
[2022-07-16 06:38] LABS: ALT/SGPT 11 U/L (<40); AST/SGOT 19 U/L (<40); Albumin/Globulin Ratio 1.1 (1.0-2.3); Alkaline Phosphatase 49 U/L (39-117); Bilirubin,Direct < 0.2 mg/dL (0-0.3); Bilirubin,Total 0.3 mg/dL (0.1-1.0); Blood Urea Nitrogen 5 mg/dL (8-23); Calcium 8.5 mg/dL (8.6-10.4); Carbon Dioxide 30 mmol/L (22-30); Chloride 98 mmol/L (96-108); Globulin 2.8 gm/dL (2.2-3.7); Glomerular Filtration Rate 107; Glucose 98 mg/dL (70-105); Lactate Dehydrogenase 162 U/L (135-225); Phosphorous 2.9 mg/dL (2.5-4.5); Triglycerides 141 mg/dL (<150); Uric Acid 5.2 mg/dL (2.5-8.0)
[2022-07-16] MEDS: PANTOPRAZOLE 40 MG VIAL IV SCH ×2 (07:34→16:45)
[2022-07-16] MEDS: POLYETHYLENE GLYCOL 3350 17 GM PACKET PO SCH ×2 (08:46→20:56)
[2022-07-16] MEDS: NEUTRA PHOS 1 PACKET PO SCH ×2 (08:47→20:55)
--- NOTE | 2022-07-16 09:21 | General Surgery Progress Note ---
SUBJECTIVE Subjective Patient information: Note initiated : 07/16/22 at 9:19 am Service Date, if different from initiated Date: [] Patient: Elkin Boucher 61 y/o M admitted on 07/10/22 for diverticulitis. Chief Complaint: [] Principal diagnosis: Diverticulitis with pelvic abscess;Acute appendicitis Interval history: POD3 status post exploratory laparotomy, Whyte's procedure with ostomy. Patient continues to do well overnight, has been ambulatory, requiring continuous IV pain medication, no ostomy output as of yet. Patient denies any nausea vomiting fevers or chills. Constitutional Vitals: Vital Signs Temp Pulse Resp BP Pulse Ox O2 Del Method O2 Flow Rate 97.9 F 73 16 148/87 96 Room Air 0 07/16/22 04:00 07/16/22 04:00 07/16/22 04:00 07/16/22 04:00 07/16/22 04:00 07/16/22 04:00 07/15/22 15:27 Period Temp Pulse Resp BP Sys/Silva Pulse Ox O2 Del Method O2 Flow Rate Last 24 Hr 97.9 F-98.3 F 72-82 16-20 136-151/66-87 94-98 Room Air-Room Air 0-0 Intake and Output 07/15/22 07/16/22 07/16/22 19:59 03:59 11:59 Intake Total 909.0909 1429.0909 1307 Output Total 1909 1979 1445 Balance -1000.9091 -550.9091 -138 Weight 211 lb 11.2 oz 215 lb Intake & Output: Intake & Output 07/15/22 07/16/22 07/16/22 19:59 03:59 11:59 Intake Total 909.0909 1429.0909 1307 Output Total 1909 1979 1445 Balance -1000.9091 -550.9091 -138 Weight 211 lb 11.2 oz 215 lb Intake: IV 709.0909 709.0909 1067 Sodium Chloride 0.9% 1,000 ml @ 0 867 125 mls/hr IV .Q8H [facility] Rx#: [id number] Merrem 2 gm In Sodium Chloride 100 100 100 0.9% 100 ml @ 100 mls/hr IV Q8H [facility] Rx#:[id number] Potassium Phosphate 40 Meq In 509.0909 509.0909 Dextrose 5% in Water 500 ml @ 127.273 mls/hr IV Q4H [facility] Rx#: [id number] Oral 200 720 240 Output: Gastric Drainage 400 Right Nare NG/OG 400 Drainage 80 Right Lower Abdomen CORDELIA Drain 80 Drainage 10 95 Right Lower Abdomen CORDELIA Drain 10 95 Urine Catheter Amount 1500 Void Amount 1900 1250 Stool 100 Other: Urine Appearance Clear Clear Clear Uretheral (Jovel) Clear Urine Color Bright Yellow Pale Yellow Pale Uretheral (Jovel) Bright Yellow Urine Odor Normal Normal Normal Uretheral (Jovel) Normal General appearance: cooperative and no acute distress Respiratory Respiratory exam: Present normal respiratory exam GI/Abdominal GI/Abdominal exam: Present normal bowel sounds, soft and tenderness; Absent distended Additional comments: Incision is dressed. Ostomy is pink, no stool or flatus in bag A/P Assessment and plan (1) Diverticulitis of intestine with abscess: Plan: Postop day #3, awaiting return of bowel function. Tolerating full liquid diet without difficulty. We will change to oral pain medication, continue with full liquid diet until ostomy output. Status: Acute Time Spent With Patient Time: Total time spent is greater than 50% in coordination of care (as documented) at patient's floor/unit and/or counseling patient:
[2022-07-16] MEDS: SENNOSIDES 1 TABLET PO SCH (20:56)
[2022-07-17] MEDS: oxyCODONE IR 5 MG TABLET PO PRN ×5 (01:03→20:18)
[2022-07-17] MEDS: METOCLOPRAMIDE 10 MG/2 ML VIAL IV SCH ×4 (05:18→22:57)
[2022-07-17] MEDS: ACETAMINOPHEN 1,000 MG/100 ML BAG IV SCH ×4 (05:18→23:20)
[2022-07-17] MEDS: 0.9 % SODIUM CHLORIDE 10 ML SYRINGE IV SCH ×2 (05:27→14:16)
[2022-07-17] MEDS: MEROPENEM 2 GM in 0.9 % SODIUM CHLORIDE 100 ML IV SCH ×3 (05:56→21:31)
[2022-07-17] MEDS: PANTOPRAZOLE 40 MG VIAL IV SCH ×2 (07:41→16:37)
[2022-07-17] MEDS: NEUTRA PHOS 1 PACKET PO SCH ×2 (08:26→20:19)
[2022-07-17] MEDS: POLYETHYLENE GLYCOL 3350 17 GM PACKET PO SCH ×2 (08:26→20:19)
--- NOTE | 2022-07-17 09:09 | General Surgery Progress Note ---
SUBJECTIVE Subjective Patient information: Note initiated : 07/17/22 at 9:06 am Service Date, if different from initiated Date: [] Patient: Elkin Boucher 61 y/o M admitted on 07/10/22 for diverticulitis. Chief Complaint: [] Principal diagnosis: Diverticulitis with pelvic abscess;Acute appendicitis Interval history: POD 4 status post exploratory laparotomy and ostomy. Patient had gas and a small amount of liquid stool in ostomy this morning, is tolerating full liquid with no nausea vomiting fevers or chills. Patient has no other complaints at this time, he is ambulatory. Constitutional Vitals: Vital Signs Temp Pulse Resp BP Pulse Ox O2 Del Method O2 Flow Rate 98.1 F 64 18 121/87 96 Room Air 0 07/17/22 08:00 07/17/22 08:00 07/17/22 08:00 07/17/22 08:00 07/17/22 08:00 07/17/22 08:00 07/17/22 07:02 Period Temp Pulse Resp BP Sys/Silva Pulse Ox O2 Del Method O2 Flow Rate Last 24 Hr 97.5 F-98.1 F 64-88 16-18 118-130/74-87 92-98 Room Air-Room Air 0-0 Intake and Output 07/16/22 07/17/22 07/17/22 19:59 03:59 11:59 Intake Total 676 087 0169 Output Total 058 774 9584 Balance 96 51 -255 Weight 217 lb Intake & Output: Intake & Output 07/16/22 07/17/22 07/17/22 19:59 03:59 11:59 Intake Total 468 257 3228 Output Total 033 929 5392 Balance 96 51 -255 Weight 217 lb Intake: IV 300 200 810 Sodium Chloride 0.9% 1,000 ml @ 610 125 mls/hr IV .Q8H [facility] Rx#: [id number] Merrem 2 gm In Sodium Chloride 100 100 100 0.9% 100 ml @ 100 mls/hr IV Q8H [facility] Rx#:[id number] Oral 450 480 240 Output: Drainage 29 Right Lower Abdomen CORDELIA Drain 29 Drainage 29 30 Right Lower Abdomen CORDELIA Drain 29 30 Void Amount 941 411 3563 Stool 75 Other: Meal Lunch Percent of Meal Consumed 100% Feeding Ability Assist with Tray Set Up Urine Appearance Clear Clear Clear Urine Color Bright Yellow Yellow Yellow Pale Urine Odor Normal Normal Normal Stool Size Small Stool Color Dark Red Blood Blood Tinged Stool Consistency Liquid Watery General appearance: cooperative and no acute distress Respiratory Respiratory exam: Present normal respiratory exam GI/Abdominal GI/Abdominal exam: Present normal bowel sounds, soft and tenderness; Absent distended Additional comments: Incision is dressed. Ostomy is pink, flatus, liquid stool A/P Assessment and plan (1) Diverticulitis of intestine with abscess: Plan: Slowly improving. Continue ambulation. Advance diet, saline lock IV. Status: Acute Time Spent With Patient Time: Total time spent is greater than 50% in coordination of care (as documented) at patient's floor/unit and/or counseling patient:
[2022-07-17] MEDS: SENNOSIDES 1 TABLET PO SCH (20:20)
[2022-07-18] MEDS: 0.9 % SODIUM CHLORIDE 10 ML SYRINGE IV SCH ×3 (00:08→14:25)
[2022-07-18] MEDS: oxyCODONE IR 5 MG TABLET PO PRN ×3 (04:09→14:33)
[2022-07-18] MEDS: ACETAMINOPHEN 1,000 MG/100 ML BAG IV SCH ×2 (05:40→12:02)
[2022-07-18] MEDS: METOCLOPRAMIDE 10 MG/2 ML VIAL IV SCH ×2 (05:40→12:03)
[2022-07-18] MEDS: MEROPENEM 2 GM in 0.9 % SODIUM CHLORIDE 100 ML IV SCH ×2 (06:20→14:24)
[2022-07-18] MEDS: PANTOPRAZOLE 40 MG VIAL IV SCH (07:30)
--- NOTE | 2022-07-18 08:15 | Operative Note ---
DATE OF OPERATION: 07/13/2022 DATE OF PROCEDURE: 07/13/2022 PREOPERATIVE DIAGNOSES: 1. Chronic diverticulitis. 2. Acute appendicitis. POSTOPERATIVE DIAGNOSES: 1. Acute diverticulitis with abscess. 2. Acute appendicitis. PROCEDURE: Sigmoid colectomy with colostomy, appendectomy and drainage of pelvic abscess,. SURGEON: Roxanne Borrego M.D. FINDINGS: Acute and chronic severe diverticulitis, abscess extending into the perirectal space, acute appendicitis by secondary spread. DESCRIPTION OF PROCEDURE: Under general anesthesia, the patient's abdomen was prepped and draped in a sterile field. A timeout procedure was carried out as per protocol. Initially, a limited lower midline incision was made. Exploration of the abdomen and pelvis revealed acute inflammation of the appendix extending from the base of the cecum into the perirectal space. Dissection of the appendix from this area resulted in release of a moderate amount of pus The distal sigmoid and rectum were tightly adherent in the deep pelvis with a moderate amount of purulence noted. It was felt that simple drainage would not be adequate. The incision was extended above the umbilicus in the midline. Retractor was placed. Dissection of the appendix was completed and the appendix was stapled at the base with two fires of the TA 30 stapler and excised. The cecum was then packed into the upper abdomen. Dissection of the sigmoid was carried out into the deep pelvis. There was a significant full-thickness perforation of the lateral portion of the sigmoid. A dissecting clamp was placed through this opening and laid into the wall of the sigmoid. Irrigation was carried out. The sigmoid was dissected down to its junction with the rectum. At this level, it was felt that it would be safe to transect the rectum with good tissue. It was transected with a Contour stapler. Staple line was oversewn using running locking 2-0 Prolene. Dissection was carried out proximal to the inflamed, thickened area and this was divided using a Contour stapler. Specimen was passed off. Cultures of the purulent material was taken and sent to pathology. The sigmoid was then sequentially mobilized along the line of Toldt up to the hepatic flexure. This gave enough length for the bowel to be pulled safely through the abdominal wall. More irrigation was carried out. A point senior care between the umbilicus and the anterior superior iliac spine was chosen and the opening for the stoma was created with a muscle splitting incision. The incision was bluntly enlarged and the distal sigmoid was pulled through this __ without compression. The wall of the sigmoid and the mesentery was sutured to the peritoneum using interrupted 3-0 silk. Further irrigation was carried out. The cecum was inspected and the closure was secure. A #10 Willie drain was placed, brought out through a separate stab incision and positioned in the retrorectal space and the area of the abscess. We then changed gloves and instruments. Blade and sponge counts were correct. The peritoneum was closed with running #1 Prolene. Subcutaneous fascia was closed with 2-0 Monocryl. Skin was closed with ruby. The wall of the colon was then sutured to the anterior rectus fascia using an interrupted 3-0 silk. The end of the sigmoid was excised and the mucosa full thickness was sutured to the dermis using running locking 3-0 Vicryl. A Tegaderm dressing was placed. A stoma appliance was also placed. The patient tolerated the procedure well. He was awakened and transferred to a bed and taken to the postanesthetic care unit in stable, satisfactory condition. LCS:prisca Job ID: [id number] Doc ID: [id number] Roxanne Borrego M.D.
[2022-07-18] MEDS: POLYETHYLENE GLYCOL 3350 17 GM PACKET PO SCH (09:58)
[2022-07-18] MEDS: NEUTRA PHOS 1 PACKET PO SCH (09:58)
--- NOTE | 2022-07-18 12:01 | Discharge Summary ---
Discharge Provider Provider IMPORTANT FOLLOW-UP INFORMATION FOR PCP: Patient information: Note initiated : 07/18/22 at 12:00 pm Service Date, if different from initiated Date: [] Patient: Elkin Boucher 61 y/o M admitted on 07/10/22 for diverticulitis. Chief Complaint: [] Date of admission: 07/10/22 15:32 Discharge date: 07/18/22 Primary care physician: Giuliana Jolly DO Consults: 07/10/22 13:59 Consult to Physician [CONS] Stat Comment: Consulting Provider: Roxanne Borrego Reason For Exam: Physician to Consult COURSE Hospital Course Hospital course: Patient is status post exploratory laparotomy, Whyte's procedure with end ostomy for perforated sigmoid diverticulitis by Dr. Borrego. Patient has progressed well postop, is ambulatory, tolerating regular diet and p ain is controlled. Discharge diagnosis: Status post sigmoid colectomy with end ostomy Time Spent with Patient Time attestation: Total time spent providing and/or coordinating discharge services: Time spent: Greater than 30 minutes Physical Examination Vital Signs Vital signs: Temp Pulse Resp BP Pulse Ox O2 Del Method O2 Flow Rate 97.7 F 66 14 117/88 96 Room Air 0 07/18/22 08:00 07/18/22 08:00 07/18/22 08:00 07/18/22 08:00 07/18/22 08:00 07/18/22 08:00 07/17/22 16:00 Discharge Plan Patient/Caregiver Discharge Instructions Activity: increase activity as tolerated Diet: Regular Diet Activity Restrictions/Additional Instructions: follow-up with ms or Monday this week Prescriptions: New acetaminophen [Tylenol 8 Hour] 650 mg tablet extended release 650 mg PO Q8H PRN (Reason: pain) Qty: 90 0RF oxycodone 5 mg tablet 5 mg PO Q6H PRN (Reason: pain) Qty: 10 0RF amoxicillin-pot clavulanate 875-125 mg tablet 1 tab PO Q12H Qty: 20 0RF Follow Up Plan Follow up with: Aly Li MD [Physician] - Giuliana Jolly DO [Primary Care Provider] - Patient Disposition: Home, Self-Care Prognosis: Fair Discharge Orders: Discharge Order (Routine); Ordered 07/18/22 Ordered By: Aly Li Pending Pending Pending: Resuscitation Status Resuscitate (Full Code) Diet GI Soft/Transitional Start [place] Jul 17 908 Hydromorphone HCl (Hydromorphone 1 Mg/Ml Syringe) 1 mg IV Q2HP PRN; Protocol PRN Reason: Per Pain Protocol Last Admin: 07/15/22 19:54 Dose: 1 mg Documented By: Admin: 07/15/22 14:06 Dose: 1 mg Documented By: Admin: 07/15/22 11:20 Dose: 1 mg Documented By: Admin: 07/15/22 08:06 Dose: 1 mg Documented By: Admin: 07/15/22 05:30 Dose: 1 mg Documented By: Admin: 07/15/22 03:36 Dose: 1 mg Documented By: Admin: 07/15/22 00:43 Dose: 1 mg Documented By: Araceli Admin: 07/14/22 22:07 Dose: 1 mg Documented By: Admin: 07/14/22 20:01 Dose: 1 mg Documented By: Admin: 07/14/22 17:42 Dose: 1 mg Documented By: Admin: 07/14/22 15:08 Dose: 1 mg Documented By: Admin: 07/14/22 13:01 Dose: 1 mg Documented By: Admin: 07/14/22 10:04 Dose: 1 mg Documented By: Admin: 07/14/22 07:39 Dose: 1 mg Documented By: Admin: 07/14/22 05:05 Dose: 1 mg Documented By: Admin: 07/14/22 02:26 Dose: 1 mg Documented By: Admin: 07/13/22 23:48 Dose: 1 mg Documented By: Admin: 07/13/22 21:56 Dose: 1 mg [facility] Admin: 07/13/22 20:08 Dose: 1 mg Documented By: [facility] Admin: 07/13/22 17:48 Dose: 1 mg Documented By: [facility] Admin: 07/13/22 15:49 Dose: 1 mg Documented By: [facility] Admin: 07/13/22 13:57 Dose: 1 mg Documented By: [facility] Admin: 07/10/22 18:36 Dose: 1 mg Documented By: NIKO Acetaminophen ([facility]) 1,000 mg in 100 mls @ 200 mls/hr IV Q6H SOLO Last Infusion: 07/18/22 06:34 Dose: 0 mls/hr Documented By: Admin: 07/18/22 05:40 Dose: 200 mls/hr Documented By: Infusion: 07/18/22 00:08 Dose: 0 mls/hr Documented By: Admin: 07/17/22 23:20 Dose: 200 mls/hr Documented By: Infusion: 07/17/22 19:09 Dose: 0 mls/hr Documented By: Admin: 07/17/22 17:54 Dose: 200 mls/hr Documented By: Infusion: 07/17/22 12:30 Dose: 200 mls/hr Documented By: Admin: 07/17/22 11:50 Dose: 200 mls/hr Documented By: Infusion: 07/17/22 05:48 Dose: 0 mls/hr Documented By: Admin: 07/17/22 05:18 Dose: 200 mls/hr Documented By: Infusion: 07/17/22 00:30 Dose: 0 mls/hr Documented By: Admin: 07/16/22 23:57 Dose: 200 mls/hr Documented By: Infusion: 07/16/22 19:06 Dose: 0 mls/hr Documented By: Admin: 07/16/22 17:57 Dose: 200 mls/hr Documented By: Infusion: 07/16/22 13:55 Dose: 200 mls/hr Documented By: Admin: 07/16/22 11:57 Dose: 200 mls/hr Documented By: Infusion: 07/16/22 07:20 Dose: 200 mls/hr Documented By: Admin: 07/16/22 06:40 Dose: 200 mls/hr Documented By: Infusion: 07/16/22 00:40 Dose: 0 mls/hr Documented By: Admin: 07/16/22 00:07 Dose: 200 mls/hr Documented By: Infusion: 07/15/22 17:45 Dose: 200 mls/hr Documented By: Admin: 07/15/22 17:06 Dose: 200 mls/hr Documented By: Infusion: 07/15/22 10:06 Dose: 200 mls/hr Documented By: Admin: 07/15/22 09:33 Dose: 200 mls/hr Documented By: Infusion: 07/15/22 04:28 Dose: 0 mls/hr Documented By: Admin: 07/15/22 03:34 Dose: 200 mls/hr [facility]: 07/14/22 20:40 Dose: 0 mls/hr Documented By: [facility] Admin: 07/14/22 20:02 Dose: 200 mls/hr [facility]ed [facility] Infusion: 07/14/22 16:33 Dose: 200 mls/hr Documented By: Admin: 07/14/22 15:44 Dose: 200 mls/hr Documented By: Infusion: 07/14/22 10:04 Dose: 200 mls/hr Documented By: Admin: 07/14/22 09:26 Dose: 200 mls/hr Documented By: Infusion: 07/14/22 02:56 Dose: 0 mls/hr Documented By: [facility] Admin: 07/14/22 02:26 Dose: 200 mls/hr [facility]ed [facility] Infusion: 07/13/22 21:10 Dose: 0 mls/hr Documented By: [facility] Admin: 07/13/22 20:09 Dose: 100 mls/hr Documented [facility]: [facility] Infusion: 07/13/22 15:30 Dose: 0 mls/hr Documented By: [facility] Admin: 07/13/22 14:56 Dose: 200 mls/hr Documented By: [facility] Admin: 07/13/22 10:07 Dose: Not Given Documented By: [facility] Infusion: 07/13/22 05:10 Dose: 0 mls/hr Documented By: Admin: 07/13/22 04:03 Dose: 200 mls/hr Documented By: Infusion: 07/13/22 03:37 Dose: 0 mls/hr Documented By: Admin: 07/12/22 22:20 Dose: 200 mls/hr Documented By: Admin: 07/12/22 16:08 Dose: Not Given Documented By: F Infusion: 07/12/22 10:32 Dose: 0 mls/hr Documented By: F Admin: 07/12/22 09:54 Dose: 200 mls/hr Documented By: F Infusion: 07/12/22 06:10 Dose: 0 mls/hr Documented By: Admin: 07/12/22 04:27 Dose: 200 mls/hr Documented By: Infusion: 07/12/22 00:31 Dose: 0 mls/hr Documented By: Admin: 07/11/22 21:29 Dose: 200 mls/hr Documented By: Infusion: 07/11/22 16:52 Dose: 0 mls/hr Documented By: Admin: 07/11/22 16:01 Dose: 200 mls/hr Documented By: Infusion: 07/11/22 10:29 Dose: 0 mls/hr Documented By: Admin: 07/11/22 09:56 Dose: 200 mls/hr Documented By: Infusion: 07/11/22 06:59 Dose: 0 mls/hr Documented By: Admin: 07/11/22 05:35 Dose: 200 mls/hr Documented By: Infusion: 07/10/22 22:22 Dose: 0 mls/hr Documented By: Admin: 07/10/22 20:53 Dose: 200 mls/hr Documented By: Infusion: 07/10/22 18:02 Dose: 0 mls/hr Documented By: Admin: 07/10/22 16:58 Dose: 200 mls/hr Documented By: BRIAN Meropenem 2 gm/ Sodium (Chloride) 100 mls @ 100 mls/hr IV Q8H SOLO Last Infusion: 07/18/22 07:37 Dose: 0 mls/hr Documented By: Admin: 07/18/22 06:20 Dose: 100 mls/hr Documented By: Infusion: 07/18/22 00:08 Dose: 0 mls/hr Documented By: Admin: 07/17/22 21:31 Dose: 100 mls/hr Documented By: Infusion: 07/17/22 16:15 Dose: 100 mls/hr Documented By: Admin: 07/17/22 14:15 Dose: 100 mls/hr Documented By: Infusion: 07/17/22 07:32 Dose: 100 mls/hr Documented By: Admin: 07/17/22 05:56 Dose: 100 mls/hr Documented By: Infusion: 07/16/22 21:58 Dose: 0 mls/hr Documented By: Admin: 07/16/22 20:56 Dose: 100 mls/hr Documented By: Infusion: 07/16/22 16:13 Dose: 100 mls/hr Documented By: Admin: 07/16/22 14:09 Dose: 100 mls/hr Documented By: Infusion: 07/16/22 06:15 Dose: 100 mls/hr Documented By: Admin: 07/16/22 05:05 Dose: 100 mls/hr Documented By: Infusion: 07/15/22 23:08 Dose: 0 mls/hr Documented By: Admin: 07/15/22 22:26 Dose: 100 mls/hr Documented By: Infusion: 07/15/22 16:18 Dose: 100 mls/hr Documented By: Admin: 07/15/22 14:06 Dose: 100 mls/hr Documented By: Infusion: 07/15/22 08:07 Dose: 100 mls/hr Documented By: Admin: 07/15/22 05:19 Dose: 100 mls/hr Documented By: Infusion: 07/14/22 23:08 Dose: 0 mls/hr Documented By: Admin: 07/14/22 22:08 Dose: 100 mls/hr Documented By: Infusion: 07/14/22 15:45 Dose: 100 mls/hr Documented By: Admin: 07/14/22 14:04 Dose: 100 mls/hr Documented By: Infusion: 07/14/22 06:30 Dose: 100 mls/hr Documented By: Admin: 07/14/22 05:05 Dose: 100 mls/hr Documented By: Infusion: 07/13/22 22:57 Dose: 0 mls/hr Documented By: Admin: 07/13/22 21:56 Dose: 100 mls/hr Documented By: Infusion: 07/13/22 14:58 Dose: 0 mls/hr Documented By: Admin: 07/13/22 13:57 Dose: 100 mls/hr Documented By: Infusion: 07/13/22 06:15 Dose: 0 mls/hr Documented By: Admin: 07/13/22 05:15 Dose: 100 mls/hr Documented By: Infusion: 07/13/22 03:37 Dose: 0 mls/hr Documented By: Admin: 07/12/22 22:55 Dose: 100 mls/hr Documented By: NIKO Metoclopramide HCl (Metoclopramide 10 Mg/2 Ml Vial) 10 mg IV Q6 formerly [facility] Admin: 07/18/22 05:40 Dose: 10 mg Documented By: Admin: 07/17/22 22:57 Dose: 10 mg Documented By: Admin: 07/17/22 17:50 Dose: 10 mg Documented By: Admin: 07/17/22 11:50 Dose: 10 mg Documented By: Admin: 07/17/22 05:18 Dose: 10 mg Documented By: Admin: 07/16/22 23:57 Dose: 10 mg Documented By: Admin: 07/16/22 18:00 Dose: 10 mg Documented By: Admin: 07/16/22 11:58 Dose: 10 mg Documented By: Admin: 07/16/22 05:05 Dose: 10 mg Documented By: Admin: 07/16/22 00:07 Dose: 10 mg Documented By: Admin: 07/15/22 18:31 Dose: 10 mg Documented By: Admin: 07/15/22 11:21 Dose: 10 mg Documented By: Admin: 07/15/22 05:20 Dose: 10 mg Documented By: Admin: 07/15/22 00:48 Dose: 10 mg Documented By: Admin: 07/14/22 17:46 Dose: 10 mg Documented By: Admin: 07/14/22 11:21 Dose: 10 mg Documented By: Admin: 07/14/22 05:05 Dose: 10 mg Documented By: Admin: 07/13/22 23:48 Dose: 10 mg Documented By: Admin: 07/13/22 17:43 Dose: 10 mg Documented By: Araceli Ondansetron HCl (Ondansetron 4 Mg/2 Ml Vial) 4 mg IV Q6HP PRN PRN Reason: Nausea And Vomiting Last Admin: 07/13/22 14:09 Dose: 4 mg Documented By: Admin: 07/12/22 11:52 Dose: 4 mg Documented By: Araceli Oxycodone HCl (Oxycodone Hcl 5 Mg Tablet) 10 mg PO Q4HP PRN; Protocol PRN Reason: Per Pain Protocol Last Admin: 07/18/22 10:05 Dose: 10 mg Documented By: Admin: 07/18/22 04:09 Dose: 10 mg Documented By: Admin: 07/17/22 20:18 Dose: 10 mg Documented By: Admin: 07/17/22 16:37 Dose: 10 mg Documented By: Admin: 07/17/22 09:21 Dose: 10 mg Documented By: Admin: 07/17/22 05:18 Dose: 10 mg Documented By: Admin: 07/17/22 01:03 Dose: 10 mg Documented By: Admin: 07/16/22 20:56 Dose: 10 mg Documented By: Admin: 07/16/22 16:45 Dose: 10 mg Documented By: Admin: 07/16/22 12:48 Dose: 10 mg Documented By: Admin: 07/16/22 08:47 Dose: 10 mg Documented By: Admin: 07/16/22 04:55 Dose: 10 mg Documented By: Admin: 07/16/22 01:12 Dose: 10 mg Documented By: Admin: 07/15/22 21:03 Dose: 10 mg Documented By: Admin: 07/15/22 17:06 Dose: 10 mg Documented By: KENNETH Pantoprazole Sodium (Pantoprazole 40 Mg Vial) 40 mg IV BIDAC formerly [facility] Admin: 07/18/22 07:30 Dose: 40 mg Documented By: Admin: 07/17/22 16:37 Dose: 40 mg Documented By: Admin: 07/17/22 07:41 Dose: 40 mg Documented By: Admin: 07/16/22 16:45 Dose: 40 mg Documented By: Admin: 07/16/22 07:34 Dose: 40 mg Documented By: Admin: 07/15/22 17:07 Dose: 40 mg Documented By: Admin: 07/15/22 08:01 Dose: 40 mg Documented By: Admin: 07/14/22 17:09 Dose: 40 mg Documented By: Admin: 07/14/22 07:39 Dose: 40 mg Documented By: Admin: 07/13/22 17:43 Dose: 40 mg Documented By: Admin: 07/13/22 07:28 Dose: 40 mg Documented By: Araceli Admin: 07/12/22 17:08 Dose: 40 mg Documented By: [facility] Admin: 07/12/22 07:14 Dose: 40 mg Documented By: Admin: 07/11/22 16:57 Dose: 40 mg Documented By: Admin: 07/11/22 08:12 Dose: 40 mg Documented By: Admin: 07/10/22 16:57 Dose: 40 mg Documented By: BRIAN Polyethylene Glycol (Polyethylene Glycol 3350 17 Gm Packet) 17 gm PO BID formerly [facility] Admin: 07/18/22 09:58 Dose: 17 gm Documented By: Admin: 07/17/22 20:19 Dose: 17 gm Documented By: Admin: 07/17/22 08:26 Dose: 17 gm Documented By: Admin: 07/16/22 20:56 Dose: 17 gm Documented By: Admin: 07/16/22 08:46 Dose: 17 gm Documented By: Admin: 07/15/22 21:02 Dose: 17 gm Documented By: TREVON Potassium/Phosphorus/Sodium (Neutra Phos 1 Packet) 2 packet PO BID formerly [facility] Admin: 07/18/22 09:58 Dose: 2 packet Documented By: Admin: 07/17/22 20:19 Dose: 2 packet Documented By: Admin: 07/17/22 08:26 Dose: 2 packet Documented By: Admin: 07/16/22 20:55 Dose: 2 packet Documented By: Admin: 07/16/22 08:47 Dose: 2 packet Documented By: Admin: 07/15/22 21:02 Dose: 2 packet Documented By: TREVON Senna (Sennosides 1 Tablet) 2 tab PO HS formerly [facility] Admin: 07/17/22 20:20 Dose: 2 tab Documented By: Admin: 07/16/22 20:56 Dose: 2 tab Documented By: Admin: 07/15/22 21:02 Dose: 2 tab Documented By: Admin: 07/14/22 20:01 Dose: 2 tab Documented By: Admin: 07/13/22 20:39 Dose: Not Given Documented By: Admin: 07/12/22 20:55 Dose: Not Given Documented By: Admin: 07/12/22 00:30 Dose: Not Given Documented By: Admin: 07/10/22 22:22 Dose: Not Given Documented By: NIKO Sodium Chloride (0.9 % Sodium Chloride 10 Ml Syringe) 10 ml IV Q8 formerly [facility] Admin: 07/18/22 05:46 Dose: 10 ml Documented By: Admin: 07/18/22 00:08 Dose: Not Given Documented By: Admin: 07/17/22 14:16 Dose: 10 ml Documented By: Admin: 07/17/22 05:27 Dose: 10 ml Documented By: Admin: 07/16/22 20:57 Dose: Not Given Documented By: Admin: 07/16/22 13:55 Dose: Not Given Documented By: MELOILPRANEETH Admin: 07/16/22 04:57 Dose: Not Given Documented By: [facility] Admin: 07/15/22 22:30 Dose: Not Given [facility] Admin: 07/15/22 15:10 Dose: Not Given Documented By: Admin: 07/15/22 05:20 Dose: 10 ml Documented [facility] Admin: 07/15/22 00:40 Dose: 10 ml Documented By: [facility] Admin: 07/14/22 14:04 Dose: 10 ml Documented By: Admin: 07/14/22 05:06 Dose: 10 ml Documented By: [facility] Admin: 07/13/22 21:23 Dose: Not Given Documented By: [facility] Admin: 07/13/22 14:15 Dose: Not Given Documented By: [facility] Admin: 07/13/22 05:47 Dose: Not Given Documented By: Admin: 07/12/22 20:56 Dose: Not Given Documented By: Admin: 07/12/22 14:13 Dose: 10 ml Documented By: F Admin: 07/12/22 05:52 Dose: Not Given Documented By: Admin: 07/11/22 21:31 Dose: 10 ml Documented By: [facility] Admin: 07/11/22 16:01 Dose: 10 ml Documented By: [facility] Admin: 07/11/22 08:12 Dose: 10 ml [facility] Admin: 07/11/22 01:15 Dose: Not Given Documented By: NIKO Shift Summary 07/18/22 06:04 Shift Summary by Veronique Vivar LIVE [facility] Elkin Boucher W Male : 1960 MedRec# [id number] 07/17/22 06:04 - Shift Summary by SUMMER Acct Num: [id number] : 1960 Patient Age: 61 Primary Diagnosis: Diverticulitis/Appendicitis Registration Status: Inpatient (FULL CODE) Date of Surgery: 07/13/2022 Sigmoid Colectomy with Colostomy, Appendicitis, Drainage of Pelvic Abscess Pertinent Medical Dx/Issue(s): History Hepatitis, History Perforated Gastric Ulcer, Arthritis, History AFIB with RVR Med Management: Merrem IV q 8 Hours, Protonix IV BID AC, Reglan IV q 6 Hours, NeutraPhos PO BID, Miralax PO BID Skin/Wound Care: CORDELIA Drain RLQ Abdomen, Midline Post Surgical Incision - Dressings CDI, Ostomy LLQ, Fluid Filled Bulla from Dressings to Right Groin Crease and Upper Aspect Ostomy Wafer Intact. Abrasion/wound to left nare from nasal gastric tube securement device open to air. Vital Signs with Trends: VSS, Afebrile O2, liter flow/saturations: RA, Uses IS up to [id number], Coughs and Deep Breaths/Splinting, Moist Intermittent Productive Cough with Thick Clear Sputum Pain Management: Ofirmev Scheduled, Roxicodone PRN (2 Doses Given), Dilaudid PRN (No Doses Given) Lab/Radiology: No new labs to review since yesterday. Neuro/Mental Status: Alert and Oriented Person, Place, Time, Situation, Able to Express Needs Urinary Elimination Device: Urinal Urinary output greater than 30mL/hr? Yes, polyuria/nocturia. Date of last BM: 07/17/2022, 300 ml brown sediment/stool fragments with ostomy appliance and copious flatus. Lines/Tubes: CORDELIA Drain RLQ, Ostomy LLQ Abdomen, IV 20 Gauge Right Upper Arm SL with Intermittent IV Meds Activity: Ambulated Hallway 300-500 Feet Numerous Times, Up to Chair For Meals Discharge Plan: Home with spouse for caregiver needs when medically stable. Patient is up out of bed, standby assist and ambulated hallways with a steady gait/balance well numerous times this shift. Observed emptying and cleansing of ostomy bag this shift, copious flatus, tolerating a GI soft transitional diet well today with no nausea or GI upset. IV is now SL and he is tolerating and consuming PO fluids well and understands diet instructions and restrictions with education. Dressings to his abdomen CDI, abdomen soft/tender and normoactive bowel tones. Dirk hose bilaterally, uses call light appropriately, takes medications whole with water. Will update shift summary report and plan of care at bedside to oncoming nurse at bedside. Initialized on 07/17/22 16:57 - END OF NOTE Initialized on 07/18/22 06:04 - END OF NOTE
== END 2022-07-18 16:40 | disposition home or self-care (01) | DRG 330 ==
LOC: MEDSUR 11:53 → ED 11:53 → OBSVTOIN 16:00 → MEDSUR 16:07
PROVIDERS: ADMIT Family Medicine Adult Medicine; ATTEND Family Medicine Adult Medicine

== ENCOUNTER 2023-06-08 09:07 | Inpatient (IN) ==
[2023-06-08] MEDS ORDERED: IOPAMIDOL 100 ML BOTTLE IV ONE (09:08)
[2023-06-08] MEDS: DICYCLOMINE 20 MG/2 ML VIAL IM ONE (09:59)
[2023-06-08] MEDS: ONDANSETRON 4 MG/2 ML VIAL IV ONE ×2 (09:59→14:18)
[2023-06-08] MEDS: 0.9 % SODIUM CHLORIDE 1,000 ML IV ONE (09:59)
[2023-06-08 10:04] LABS: Basophils # (Auto) 0.02 K/mcL (0.00-0.30); Basophils % (Auto) 0.2 % (0.0-2.0); Eosinophils # (Auto) 0.01 K/mcL (0.00-0.70); Eosinophils % (Auto) 0.1 % (0.0-7.0); Hematocrit 50.5 % (40.1-51.0); Hemoglobin 16.7 g/dL (13.7-17.5); Lymphocytes # (Auto) 0.68 K/mcL (1.50-4.80); Lymphocytes % (Auto) 6.8 % (15.5-49.0); Mean Cell Volume 89.2 fL (80.0-100.0); Mean Corpuscular HGB Conc 33.1 g/dL (31.0-36.0); Mean Platelet Volume 10.1 fL (8.8-12.5); Monocytes # (Auto) 0.54 K/mcL (0.10-0.90); Monocytes % (Auto) 5.4 % (1.0-12.0); Neutrophils % (Auto) 87.3 % (38.0-78.0); Platelet Count 238 K/mcL (140-440); RBC 5.66 M/mcL (4.63-6.08); Red Cell Distribution Width 13.1 % (11.5-14.5)
[2023-06-08 10:26] LABS: ALT/SGPT 19 U/L (<40); AST/SGOT 24 U/L (<40); Albumin 4.4 gm/dL (3.2-5.2); Albumin/Globulin Ratio 1.4 (1.0-2.3); Alkaline Phosphatase 73 U/L (39-117); Bilirubin,Total 0.6 mg/dL (0.1-1.0); Blood Urea Nitrogen 14 mg/dL (8-23); Calcium 9.7 mg/dL (8.6-10.4); Carbon Dioxide 18 mmol/L (22-30); Chloride 102 mmol/L (96-108); Globulin 3.1 gm/dL (2.2-3.7); Glomerular Filtration Rate 90; Glucose 137 mg/dL (70-105)
[2023-06-08] MEDS: fentaNYL 100 MCG/2 ML VIAL IV ONE (11:50)
[2023-06-08 12:08] LABS: Appearance,Urine Clear (Clear); Bilirubin,Urine Negative (Negative); Color,Urine Yellow; Culture Indicated,Urine No; Glucose,Urine (UA) Negative (Negative); Ketones,Urine 40 mg/dL (Negative); Leukocyte Esterase,Urine Negative /uL (Negative); Nitrate,Urine Negative (Negative); Protein,Urine Negative (Negative); Urine Blood Trace-intact ery/mcL (Negative); Urine RBC 0 /hpf (0-3); Urine Squamous Epithelial Cell 0 /hpf (0-4); Urine WBC 0 /hpf (0-4); Urobilinogen,Urine Normal
[2023-06-08] MEDS ORDERED: HYDROmorphone 1 MG/ML SYRINGE IV PRN (14:06)
[2023-06-08] MEDS ORDERED: PROMETHAZINE 25 MG/ML VIAL IV PRN (14:06)
[2023-06-08] MEDS ORDERED: ONDANSETRON 4 MG/2 ML VIAL IV PRN (14:06)
[2023-06-08] MEDS ORDERED: morphine 2 MG/ML VIAL IV PRN (14:10)
[2023-06-08] MEDS: LORazepam 2 MG/ML VIAL IV ONE (14:18)
[2023-06-08] MEDS: LACTATED RINGERS 1,000 ML IV SCH (14:19)
[2023-06-08] MEDS: 0.9 % SODIUM CHLORIDE 1,000 ML IV SCH (14:23)
[2023-06-08] MEDS: METOCLOPRAMIDE 10 MG/2 ML VIAL IV SCH (17:36)
[2023-06-08] MEDS: 0.9 % SODIUM CHLORIDE 10 ML SYRINGE IV SCH (22:28)
[2023-06-09 06:42] LABS: Basophils # (Auto) 0.04 K/mcL (0.00-0.30); Basophils % (Auto) 0.7 % (0.0-2.0); Eosinophils # (Auto) 0.08 K/mcL (0.00-0.70); Eosinophils % (Auto) 1.3 % (0.0-7.0); Hematocrit 42.2 % (40.1-51.0); Hemoglobin 13.9 g/dL (13.7-17.5); Lymphocytes # (Auto) 1.24 K/mcL (1.50-4.80); Lymphocytes % (Auto) 20.4 % (15.5-49.0); Mean Cell Volume 88.8 fL (80.0-100.0); Mean Corpuscular HGB Conc 32.9 g/dL (31.0-36.0); Mean Platelet Volume 10.5 fL (8.8-12.5); Monocytes # (Auto) 0.49 K/mcL (0.10-0.90); Neutrophils % (Auto) 69.4 % (38.0-78.0); Platelet Count 212 K/mcL (140-440); RBC 4.75 M/mcL (4.63-6.08); Red Cell Distribution Width 13.3 % (11.5-14.5); WBC 6.1 K/mcL (4.5-11.0)
[2023-06-09 07:05] LABS: ALT/SGPT 12 U/L (<40); AST/SGOT 19 U/L (<40); Albumin 3.6 gm/dL (3.2-5.2); Albumin/Globulin Ratio 1.7 (1.0-2.3); Alkaline Phosphatase 50 U/L (39-117); Bilirubin,Direct < 0.2 mg/dL (0-0.3); Bilirubin,Total 0.6 mg/dL (0.1-1.0); Blood Urea Nitrogen 10 mg/dL (8-23); Calcium 8.4 mg/dL (8.6-10.4); Carbon Dioxide 25 mmol/L (22-30); Chloride 107 mmol/L (96-108); Globulin 2.1 gm/dL (2.2-3.7); Glomerular Filtration Rate 95; Glucose 105 mg/dL (70-105); Lactate Dehydrogenase 140 U/L (135-225); Phosphorous 2.8 mg/dL (2.5-4.5); Triglycerides 64 mg/dL (<150); Uric Acid 5.5 mg/dL (2.5-8.0)
[2023-06-09] MEDS ORDERED: DIATRIZOATE MEGLU/DIATRIZO SOD 120ML BOTTLE PO ONE (13:57)
== END 2023-06-09 14:51 | disposition home or self-care (01) | DRG 390 ==
LOC: ED 09:07 → MEDSUR 12:07
PROVIDERS: ADMIT Family Medicine Adult Medicine; ATTEND Family Medicine Adult Medicine